=== PATIENT | female | born 1955 | race Hispanic/Latino ===

== ENCOUNTER → 2018-06-12 | Outpatient (CLI) | payer MEDICARE ==
--- NOTE | 2018-06-12 16:25 | Diagnostic Imaging Report ---
Left knee MRI without contrast. History: Knee pain. Decreased range of motion. Pain not responding to conservative management Comparison: None. Technique: Multiplanar multi-sequence MRI of the knee without contrast. Findings: Medial compartment: There is a complex medial meniscus tear involving the posterior horn and body segments. There is reactive bone marrow edema at the periphery of the medial femoral condyle. The medial compartmental articular cartilage surfaces are thinned with regions of fraying and fissuring. There is underlying bone marrow edema. The medial collateral ligament complex is intact. Lateral compartment: No meniscal tear or cartilage abnormality. The LCL complex is normal. Intercondylar notch: The ACL and PCL are intact. Patellofemoral compartment: There is articular cartilage fraying and deep fissuring in the patellofemoral compartment with mild underlying bone marrow edema. Extensor mechanism: The quadriceps and patellar tendons are normal. Other findings: There is a joint effusion and synovitis. There is no acute fracture, subluxation or avascular necrosis. 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 Articular cartilage fraying and deep fissuring in the patellofemoral compartment with underlying bone marrow edema. Signed by: Dr. Omar Mg M.D. on 06/12/2018 4:22 PM
== END ==
LOC: MRI 14:55
PROVIDERS: ATTEND Family Medicine
DX: M25.562 Pain in left knee (principal); M25.662 Stiffness of left knee, not elsewhere classified

== ENCOUNTER 2018-07-14 16:31 | Inpatient (IN) | payer MEDICARE ==
[~2018-07-14] VITALS: Ht 160 cm; Wt 88.9 kg
[2018-07-14] VITALS (14 sets, daily range): BP systolic 42–105; BP diastolic 33–84
--- OUTSIDE RECORDS SUMMARY | 2018-07-14 16:34 | XMS REPORT ---
Author Author [facility] Address Unknown Phone Unavailable Care Team Providers Care Automobile Service Writer Name Role Phone KRISHNA HOUSTON Unavailable Unavailable Problems This patient has no known problems. Allergies, Adverse Reactions, Alerts This patient has no known allergies or adverse reactions. Medications This patient has no known medications. Results Test Description Test Time Test Comments Text Results Atomic Results Result Comments MRI KNEE LEFT WO 2018-06-12 16:20:00 [facility] [address] [place], [place] [address] Patient Name: CHAR BARRIOS MR #: [id number] : 1955 Age/Sex: 63/F Req #: [id number] Adm Physician: Ordered by: HOUSTON ANDREW DO Report #: [id number] Location: MRI Room/Bed: Procedure: [id number] MRI/MRI KNEE LEFT WO Exam Date: Exam Time: REPORT STATUS: Signed Left knee MRI without contrast. History: Knee pain. Decreased r jamey of motion. Pain not responding to conservative management Comparison: None. Technique: Multiplanar multi-sequence MRI of the knee without contrast. Findings: Medial compartment: There is a complex medial meniscus tear involving the posterior horn and body segments. There is reactive bone marrow edema at the periphery of the medial femoral condyle. The medial compartmental articular cartilage surfaces are thinned with regions of fraying and fissuring. There is underlying bone marrow edema. The medial collateral ligament complex is intact. Lateral compartment: No meniscal tear or cartilage abnormality. The LCL complex is normal. Intercondylar notch: The ACL and PCL are intact. Patellofemoral compartment: There is articular cartilage fraying and deep fissuring in the patellofemoral compartment with mild underlying bone marrow edema. Extensor mechanism: The quadriceps and patellar tendons are normal. Other findings: There is a joint effusion and synovitis. There is no acute fracture, subluxation or avascular necrosis. 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 Articular cartilage fraying and deep fissuring in the patellofemoral compartment with underlying bone marrow edema. Signed by: Dr. Omar Mg M.D. on 06/12/2018 4:22 PM Dictated By: OMAR MG MD, MD 21 Transcribed By: LEXI on 06/12/181621 COPY TO: KRISHNA HOUSTON DO
--- NOTE | 2018-07-14 16:53 | NUR ---
PATIEN TO ROOM 4
--- NOTE | 2018-07-14 17:16 | Diagnostic Imaging Report ---
EXAM: XR CHEST 1 VIEW DATE: 07/14/2018 4:51 PM INDICATION: Fever COMPARISON: None FINDINGS: Lines and Tubes: None Heart and Mediastinum: Mildly enlarged. Lungs and Pleura: Underpenetration and body habitus limit. Patchy opacities lung bases. Bones and Soft Tissues: No acute findings. IMPRESSION: 1. Exam limited for technical reasons as above. 2. Basilar opacities could represent atelectasis, edema, and/or pneumonia. Signed by: Dr. Cassius Camara MD on 07/14/2018 5:13 PM
[2018-07-14 17:28] LABS: BASOPHILS # (AUTO) 0.1 (0.0-0.1); BASOPHILS % 0.4 % (0.0-1.0); EOSINOPHILS % 0.2 % (0.0-6.0); HEMATOCRIT 41.1 % (34.2-44.1); HEMOGLOBIN 14.2 g/dL (12.0-16.0); LYMPHOCYTES # (AUTO) 4.4 (1.0-3.2); LYMPHOCYTES % 22.9 % (18.0-39.1); MEAN CORPUSCULAR HEMOGLOBIN 31.4 pg (28-32); MEAN CORPUSCULAR HGB CONC 34.5 g/dL (31-35); MEAN CORPUSCULAR VOLUME 90.9 fL (81-99); MONOCYTES # (AUTO) 1.1 (0.2-0.8); MONOCYTES % 5.8 % (4.4-11.3); NEUTROPHILS # (AUTO) 13.3 (2.1-6.9); NEUTROPHILS % 69.6 % (38.7-80.0); PLATELET COUNT 281 x10e3/uL (140-360); RED BLOOD COUNT 4.52 x10e6/uL (3.6-5.1); RED CELL DISTRIBUTION WIDTH 11.9 % (11.7-14.4)
[2018-07-14 17:36] LABS: BILIRUBIN,URINE 1+ (NEGATIVE); CLARITY,URINE CLEAR (CLEAR); COLOR,URINE YELLOW (YELLOW); KETONES,URINE NEGATIVE (NEGATIVE); LEUKOCYTE ESTERASE ,URINE TRACE (NEGATIVE); NITRITE,URINE NEGATIVE (NEGATIVE); PROTEIN,URINE DIPSTICK 1+ (NEGATIVE); URINE UROBILINOGEN 4 mg/dL (0.2 - 1)
[2018-07-14 17:36] LABS: INR 1.15; PROTHROMBIN TIME 15.7 seconds (11.9-14.5)
--- NOTE | 2018-07-14 17:39 | NUR ---
AOS NOTIFIED OF CODE STEMI AT THIS TIME.
[2018-07-14] MEDS ORDERED: ASPIRIN 81 MG ENTERIC COATED PO ONE (17:41)
[2018-07-14] MEDS ORDERED: ASPIRIN 81 MG CHEW TAB PO ONE (17:45)
[2018-07-14] MEDS ORDERED: TICAGRELOR 90 MG TABLET PO ONE (17:45)
[2018-07-14] MEDS ORDERED: HEPARIN SOD (PORCINE) 5,000 UNIT/ML VIAL IV ONE (17:45)
[2018-07-14] MEDS ORDERED: VANCOMYCIN 1GM/NS 250 ML 250 ML IV ONE (17:45)
[2018-07-14] MEDS ORDERED: SODIUM CHLORIDE 0.9% 500ML 500 ML IV ONE (17:45)
[2018-07-14 17:46] LABS: BACTERIA,URINE FEW /HPF; EPITHELIAL CELLS,URINE FEW /LPF; MUCUS,URINE RARE (RARE)
[2018-07-14 17:46] LABS: ALBUMIN 3.3 g/dL (3.5-5.0); ALBUMIN/GLOBULIN RATIO 0.7 (0.8-2.0); ANION GAP 22.4 mmol/L (8-16); CALCIUM 9.3 mg/dL (8.4-10.2); CREATININE, SERUM 2.5 mg/dL (0.57-1.11); POTASSIUM 3.4 mmol/L (3.5-5.1)
[2018-07-14] MEDS ORDERED: SODIUM CHLORIDE 0.9% 1000ML 1,000 ML IV STA (17:49)
[2018-07-14 17:55] LABS: CREATINE KINASE MB 7.4 ng/mL (0-5.0)
[2018-07-14 17:58] LABS: B-TYPE NATRIURETIC PEPTIDE2 2200.1 pg/mL (0-100)
[2018-07-14] MEDS ORDERED: CEFEPIME HCL 2 GM VIAL IV NR (18:00)
[2018-07-14] MEDS ORDERED: HEPARIN SOD (PORCINE) 1000 UNIT/ML 30ML ONE (18:20)
[2018-07-14] MEDS ORDERED: VERAPAMIL HCL 2.5 MG/ML 2 ML VIAL ONE ×2 (18:20→18:34)
[2018-07-14] MEDS ORDERED: HEPARIN SOD/SOD CHLORIDE 2,000 ML ONE (18:21)
[2018-07-14] MEDS ORDERED: FENTANYL CITRATE/PF 100MCG/2 ML INJ ONE ×2 (18:21→19:28)
[2018-07-14] MEDS ORDERED: LIDOCAINE HCL 2% LOCAL 20 ML VIAL ONE (18:21)
[2018-07-14] MEDS ORDERED: MIDAZOLAM HCL 2 MG/2 ML VIAL ONE (18:21)
[2018-07-14] MEDS ORDERED: IOPAMIDOL 370 MG/ML 200 ML INFUS..BTL INJ ONE ×2 (18:21→19:19)
[2018-07-14] MEDS ORDERED: NITROGLYCERIN/D5W 200 MCG/ML 250 ML ONE (18:21)
[2018-07-14] MEDS ORDERED: FUROSEMIDE INJ 10 MG/ML 4 ML VIAL ONE (19:26)
[2018-07-14] MEDS ORDERED: ONDANSETRON HCL INJ 2 MG/ML VIAL IV PRN (23:45)
--- NOTE | 2018-07-14 23:45 | NUR ---
CALLED DR VILLAVICENCIO REGARDING PATIENT HAVING SEVERAL EPISODES OF NAUSEA WITH VOMITING BROWN IN COLOR AND HAD SMELL OF FECES ALONG WITH PATIENT HAVING SMELLS OF ANXIETY. NEW ORDER RECEIVED. AND PLACED
[2018-07-15] VITALS (46 sets, daily range): BP systolic 67–111; BP diastolic 46–93
--- NOTE | 2018-07-15 00:10 | Operative Report ---
DATE OF PROCEDURE: July 14, 2018 PROCEDURE: Cardiac catheterization report. INDICATIONS FOR PROCEDURE: STEMI. PRE-SEDATION ASSESSMENT: Patient's previous medical history, social history, previous experience with anesthesia was reviewed prior to the procedure. The risks, the benefits, alternatives of the procedure were explained to the patient and her and verbal consent was obtained. Written consent could not be obtained due to medical emergency. MEDICATIONS ADMINISTERED: Please see nursing notes for medications administered during the procedure. PROCEDURES PERFORMED 1. Coronary angiography through right radial approach. 2. Left heart catheterization. 3. Percutaneous coronary intervention to the right coronary artery with drug-eluting stent x2. PROCEDURE: Patient was brought to the cardiac catheterization laboratory in an emergent fashion. The right wrist was prepped and draped in a sterile fashion. Patient had very, very weak radial pulses that could not be palpated easily and a very small radial artery access was very difficult after getting accessed. Angiogram of the right radial artery system showed diffuse spasm as well as accessory radial artery, which made catheterization very difficult. We were able to pass 0.035-inch Glidewire and navigate through to the brachial artery and into the ascending aorta. Passing of a 6-Danish guide was very difficult and required significant sedation and localized verapamil. Angiography of the RCA was performed using a 6-Danish right guiding catheter. RCA was noted to have 80% lesion in the mid portion and the right posterior descending artery was noted to be 200% occluded. Given patient's ST elevation in the inferior leads, we decided to proceed with PCI of the RCA. We were able to wire the 100% occluded RPDA with some difficulty with the ChoICE PT floppy 0.014-inch coronary wire. Balloon angioplasty was performed using a 2.0- x 12-mm. Compliant balloon stenting was performed using 2.0- x 22-mm [place] drug-eluting stent for the RPDA and a 2.75- x 18-mm drug-eluting stent for the mid RCA. Pulse deployed at high pressures. This provided excellent angiographic results without any significant dissection thrombus or spasm. CAM-3 flow was restored in the RPDA. Distal PDA was diffusely diseased and was not amenable to PCI. We then changed to a 4-maori JL-3.5 diagnostic catheter given severe radial artery spasm to perform angiography of the left coronary system left coronary system. Left coronary system showed a 40% plaque in the ostial left main, as well as 80% lesion in OM-1 and just 80% lesion in the distal LAD as well as in a long, but small caliber diagonal. No further intervention was performed as these lesions were stable and patient's GFR was very low. All catheters were removed over a wire. Access site was closed using a TR band using patent hemostasis technique. IV boluses of heparin were administered to achieve ACT near 300. Ticagrelor 180 mg was loaded orally in the ER prior to the procedure. Patient tolerated the procedure well without any significant complications. LV end-diastolic pressure was measured using a right guide and was noted to be 38 mmHg. CONCLUSION: Inferior ST elevation ME, status post PCI x2 to the RCA with drug-eluting stent. RECOMMENDATIONS 1. Admitted to ICU for post STEMI care. 2. Continue aspirin 81 mg and Ticagrelor 90 mg twice a day for at least 1 year and aspirin 81 mg daily for life. 3. Follow up in clinic 2 weeks post discharge. 4. Staged PCI to the OM and distal LAD to be discussed once she recovers from acute illness, likely to be done as an outpatient after discharge. Job#: [id number] CQ
[2018-07-15] MEDS: ALPRAZOLAM 0.5 MG TAB PO PRN ×2 (00:40→21:16)
[2018-07-15] MEDS: FUROSEMIDE INJ 10 MG/ML 4 ML VIAL IV SCH ×4 (02:43→18:00)
--- NOTE | 2018-07-15 03:42 | NUR ---
CALLED DR VILLAVICENCIO REGARDING PATIENT COMPLAINING OF CHEST TIGHTNESS BUT MORE PRESSURE IN THE MID UPPER CHEST TO LEFT UPPER CHEST WALL. NON-TENDER UPON PALPATION. STILL COMPLAINS OF NAUSEA. NEW ORDER FOR MORPHINE 2MG X1 dose now and MORPHINE 2MG IV Q4HR PRN FOR CHEST PAIN. WILL CONTINUE TO MONITOR FOR FURTHER ISSUES. SEE VS FLOW SHEET FOR VS AND PAIN LEVEL ON q@H PAIN ASSESSMENT
[2018-07-15] MEDS ORDERED: MORPHINE SULFATE INJ 4 MG/ML INJ IV STA (03:46)
--- NOTE | 2018-07-15 04:50 | NUR ---
CALLED AND SPOKE TO DR Niharika DUNHAM REGARDING PATIENT HAVING URINARY RETENTION. BLADDER SCAN GREATER THAN 200CC. ORDER TO STRAIGHT CATH PATIENT AND IF GREATER THAN 400CC OF URINARY OUTPUT MAY INSERT INDWELLING TELLES CATH. ORDER PLACED AND CATH PERFORMED UNDER STERILE TECHNIQUE, PATIENT TOLERATED WELL AND HAD MUCH RELIEF WITH APPROXIMATED 350CC OF STRAW COLOR URINE WITH MILD PUNGENT SMELL.
[2018-07-15 04:51] LABS: BASOPHILS # (AUTO) 0.1 (0.0-0.1); BASOPHILS % 0.4 % (0.0-1.0); EOSINOPHILS % 0.1 % (0.0-6.0); HEMATOCRIT 36.6 % (34.2-44.1); HEMOGLOBIN 12.3 g/dL (12.0-16.0); LYMPHOCYTES # (AUTO) 3.5 (1.0-3.2); LYMPHOCYTES % 18.3 % (18.0-39.1); MEAN CORPUSCULAR HEMOGLOBIN 30.4 pg (28-32); MEAN CORPUSCULAR HGB CONC 33.6 g/dL (31-35); MEAN CORPUSCULAR VOLUME 90.6 fL (81-99); MONOCYTES # (AUTO) 1.2 (0.2-0.8); MONOCYTES % 6.3 % (4.4-11.3); NEUTROPHILS % 73.8 % (38.7-80.0); PLATELET COUNT 255 x10e3/uL (140-360); RED BLOOD COUNT 4.04 x10e6/uL (3.6-5.1); RED CELL DISTRIBUTION WIDTH 11.9 % (11.7-14.4)
[2018-07-15 05:29] LABS: CREATINE KINASE MB 5.4 ng/mL (0-5.0)
[2018-07-15 05:54] LABS: ALBUMIN 2.8 g/dL (3.5-5.0); ALBUMIN/GLOBULIN RATIO 0.7 (0.8-2.0); ANION GAP 20.5 mmol/L (8-16); CALCIUM 8.6 mg/dL (8.4-10.2); CHOL/HDL RATIO 13.5 (3.0-3.6); CREATININE, SERUM 2.23 mg/dL (0.57-1.11); POTASSIUM 3.5 mmol/L (3.5-5.1)
[2018-07-15] MEDS: ASPIRIN 81 MG CHEW TAB PO SCH (09:00)
[2018-07-15] MEDS: TICAGRELOR 90 MG TABLET PO SCH ×3 (09:00→20:54)
[2018-07-15] MEDS: PANTOPRAZOLE SOD 40 MG TABEC PO SCH (09:00)
[2018-07-15] MEDS: SODIUM CHLORIDE 0.9% 1000ML 1,000 ML IV SCH ×2 (11:00→23:00)
[2018-07-15 12:22] LABS: CREATINE KINASE MB 4.7 ng/mL (0-5.0)
--- NOTE | 2018-07-15 15:48 | NUR ---
Nutrition Intervention Note RD Recommendation(s) for Physician: -Rec adding ADA to cardiac diet as medically appropriate -Rec Glucerna BID to promote PO intake -Encourage PO and hydration Plan of Care: RD following, monitoring for tolerance and adequacy Nutrition reason for involvement: Nutrition Risk Trigger MST RD Assessment 07/15: Chart reviewed. 63yo F who is admitted for STEMI s/p stent on 07/14. During my assessment, pt reports poor appetite for 4-5days. Pt states I throw up whenever I eat. Pt denies any nausea or vomiting since admission. Pt reports having diarrhea for over 10days since started on Metformin a month ago; pt stopped taking the med. LBM 07/14 per chart. Pt has some missing bottom teeth but no complain of chewing or swallowing difficulty. Pt reports of UBW ~170lb; RD do not suspect of any acute weight loss at this time. Will continue to monitor and follow. Principal Problems/Diagnoses: STEMI s/p stent on 07/14, sepsis PMH: DM GI: LBM 07/14 per chart Skin: intact Labs: (07/15) Na 129 L, BUN 48 H, Creat 2.23 H, Glucose 215 H Meds: (07/15) Lasix, NaCl, Protonix, Zofran Ht: 63in Wt: 172lb BMI: 30.5kg/m2 IBW: 115lb Malnutrition Evaluation (07/15) The patient does not meet criteria for a specified degree of malnutrition at this time. Will re-evaluate at follow-up as appropriate. Energy intake: <50% of estimated energy requirements for >5 days Weight loss: None Fat loss: None Muscle loss: None Nutrition Prescription (Diet Order): cardiac diet Diet Adequacy: Not meeting calorie needs, Not meeting protein needs Diet Education Needs Assessment: Diet education indicated, but patient not appropriate for education at this time. Nutrition Care Level: moderate Nutrition Diagnosis: Inadequate oral intake related to current medical status as evidenced by pt reports of poor appetite and PO intake for 4-5 days. Goal: Patient will meet 75-100% of estimated needs by follow up Progress: Not Progressing Interventions: Mineral/carbohydrate modified diet, Commercial beverage, IVF, Prescription medications Monitoring/Evaluation: Total energy intake, Total protein intake, IVF, Prescription medication, Modified diet, Liquid supplement, Weight change Signed: Milka Gonsalez, MS, RD, LD
[2018-07-15] MEDS: MORPHINE SULFATE INJ 4 MG/ML INJ IV PRN (17:55)
--- NOTE | 2018-07-15 19:18 | Consultation ---
DATE OF CONSULTATION: July 15, 2018 CARDIOLOGY CONSULTATION REASON FOR CONSULTATION: ST elevation myocardial infarction. HISTORY OF PRESENT ILLNESS: This is a 63-year-old woman with a history of hypertension, diabetes mellitus who presented to the emergency department with chest discomfort, shortness of breath, cough, nausea and vomiting, and fatigue. The patient is slightly confused and cannot provide me with the exact details of her presenting symptoms or medical history. In the emergency department, she was found to have ST elevation myocardial infarction. She was taken to the cardiac catheterization laboratory and was found to have an occluded RCA which was successfully revascularized percutaneously by Dr. Rocha. She is currently feeling well and denies any chest pain or any other ongoing symptoms. REVIEW OF SYSTEMS: A 12-point review of systems was conducted, and is negative other than stated above in the HPI. PAST MEDICAL HISTORY: As stated above in the HPI. PAST SURGICAL HISTORY: Percutaneous coronary intervention. PAST FAMILY HISTORY: No premature coronary artery disease or sudden cardiac . ALLERGIES: NO KNOWN DRUG ALLERGIES. MEDICATIONS: See medication reconciliation form. PHYSICAL EXAMINATION VITAL SIGNS: Temperature 96.3, heart rate 90, saturation 98% on room air, blood pressure 109/82, respirations 18. GENERAL: She is a chronically ill-appearing elderly woman lying in bed. HEENT: Head is normocephalic, atraumatic. Eyes: Extraocular movements are intact. Conjunctivae clear. NECK: No jugular venous distention. CARDIOVASCULAR: Regular rate and rhythm. Normal S1 and S2. A systolic murmur heard best at the left upper sternal border. LUNGS: Clear to auscultation bilaterally. No wheezing and no rales. ABDOMEN: Soft, nontender, nondistended EXTREMITIES: No edema. VASCULAR; Severely diminished pulses. NEUROLOGIC: No focal deficits noted. All laboratory and imaging data were reviewed and notable for a creatinine of 2.23. Lactic acid is 27. AST 96, ALT 127. Troponin I is 20.6. LDL is 106. Chest x-ray shows bibasilar opacities. Telemetry monitoring revealed normal sinus rhythm. IMPRESSION AND RECOMMENDATIONS: 1. Inferior ST elevation myocardial infarction. The patient underwent successful revascularization percutaneously with Dr. Rocha. Continue dual-antiplatelet therapy. Statin has been given. May consider holding statin given elevated liver function test. Will check a 2D echocardiogram to assess left ventricular systolic function. The patient will need cardiac rehab. 2. Hypertension. The patient's blood pressure is running low. Beta rodrigo has not been started due to these issues. Will continue to monitor closely. 3. Chronic kidney disease, unclear baseline. Continue to follow urinary outputs and daily creatinine. 4. Abnormal liver function test. Defer treatment to primary team. Consider holding statin. Will continue to follow. Thank you for the consultation. Job#: [id number] WALT
[2018-07-15] MEDS ORDERED: ATORVASTATIN 20 MG TAB PO SCH (21:00)
--- NOTE | 2018-07-15 21:16 | NUR ---
Medicated for anxiety.
[2018-07-16] VITALS (16 sets, daily range): BP systolic 83–115; BP diastolic 60–92
[2018-07-16] MEDS: FUROSEMIDE INJ 10 MG/ML 4 ML VIAL IV SCH ×4 (00:11→17:38)
--- NOTE | 2018-07-16 04:30 | NUR ---
Complete bed bath given. Bed linens changed.
--- NOTE | 2018-07-16 05:25 | NUR ---
in to visit. Questions answered.
[2018-07-16] MEDS: SODIUM CHLORIDE 0.9% 1000ML 1,000 ML IV SCH (06:45)
[2018-07-16] MEDS: PANTOPRAZOLE SOD 40 MG TABEC PO SCH (07:28)
[2018-07-16 08:30] LABS: BASOPHILS # (AUTO) 0.1 (0.0-0.1); BASOPHILS % 0.4 % (0.0-1.0); EOSINOPHILS # (AUTO) 0.1 (0.0-0.4); EOSINOPHILS % 0.4 % (0.0-6.0); HEMATOCRIT 37.8 % (34.2-44.1); HEMOGLOBIN 12.7 g/dL (12.0-16.0); LYMPHOCYTES # (AUTO) 2.9 (1.0-3.2); MEAN CORPUSCULAR HEMOGLOBIN 31.4 pg (28-32); MEAN CORPUSCULAR HGB CONC 33.6 g/dL (31-35); MEAN CORPUSCULAR VOLUME 93.3 fL (81-99); MONOCYTES # (AUTO) 1.1 (0.2-0.8); MONOCYTES % 5.8 % (4.4-11.3); NEUTROPHILS # (AUTO) 14.5 (2.1-6.9); PLATELET COUNT 300 x10e3/uL (140-360); RED BLOOD COUNT 4.05 x10e6/uL (3.6-5.1); RED CELL DISTRIBUTION WIDTH 12.2 % (11.7-14.4)
[2018-07-16] MEDS: ASPIRIN 81 MG CHEW TAB PO SCH (08:46)
[2018-07-16] MEDS: TICAGRELOR 90 MG TABLET PO SCH ×3 (08:46→21:00)
[2018-07-16 09:22] LABS: ALBUMIN 2.7 g/dL (3.5-5.0); ALBUMIN/GLOBULIN RATIO 0.7 (0.8-2.0); ANION GAP 17.4 mmol/L (8-16); CALCIUM 8.5 mg/dL (8.4-10.2); CREATININE, SERUM 2.11 mg/dL (0.57-1.11); POTASSIUM 3.4 mmol/L (3.5-5.1)
--- NOTE | 2018-07-16 11:11 | Progress Note ---
DATE: July 16, 2018 CARDIOLOGY PROGRESS NOTE SUBJECTIVE: Patient feels well. Denies any chest pain, shortness of breath or palpitations. Again, she is in denial and states that she did not have a heart attack. OBJECTIVE VITAL SIGNS: Temperature is 97.2, heart rate is 84, respirations 16, blood pressure 94/74, oxygen saturation is 98% on room air. GENERAL: She is a chronically ill-appearing woman lying comfortably in bed. HEENT: Head is normocephalic and atraumatic. CARDIOVASCULAR: She is a regular rate and rhythm with a systolic murmur heard best at the left upper sternal border. LUNGS: Scattered crackles throughout both lower lung robles. ABDOMEN: Soft and nontender. EXTREMITIES: Trace edema. VASCULAR: Diminished pulses. NEUROLOGIC: No focal deficits noted. LABORATORY DATA: Reviewed. Shows a white blood cell count of 19.15. Creatinine of 2.11, sodium of 128, potassium of 3.4. Total bilirubin is 1.5, AST 74, ALT 115. Telemetry monitoring revealed normal sinus rhythm. IMPRESSION 1. Inferior ST-elevation myocardial infarction. 2. Hypertension. 3. Plxbo-hp-iooaoig kidney disease. 4. Abnormal liver function. 5. Leukocytosis. RECOMMENDATIONS: Patient is hemodynamically stable and feeling well from a cardiovascular standpoint. She has no continued chest pain. Continue dual antiplatelet regimen with aspirin and Brilinta. Statin on hold due to elevated liver function tests. Will start low-dose beta blockers. Check a 2-D echocardiogram and continue Lasix for diuresis. I will repeat a chest x-ray given crackles on exam today. Continue treatment for leukocytosis and hyponatremia per primary team. She may require antibiotics. In regards to her heart failure, will check a 2-D echocardiogram and continue Lasix intravenously, and monitor creatinine and urinary outputs. Job#: [id number] LAWRENCE
[2018-07-16] MEDS ORDERED: POTASSIUM CHLORIDE 20MEQ/100ML 100 ML IV ONE (12:15)
[2018-07-16] MEDS ORDERED: LACTULOSE SYRUP 20 GM/30 ML UDC PO PRN (12:15)
[2018-07-16] MEDS: CEFTRIAXONE SOD 1 GM VIAL IV SCH (12:49)
--- NOTE | 2018-07-16 14:38 | NUR ---
nursing report called to Emiliana LINARESneurosurgical nurse practitioner 2 for room 212. will transfer patient when echo completed and new p.iv placed.
[2018-07-16] MEDS ORDERED: SODIUM CHLORIDE 0.9% 250ML 250 ML ONE (14:49)
--- NOTE | 2018-07-16 15:31 | NUR ---
Received patient from ICU via bed.Accompanied by family member. AAOX3 to time, person, place. Respirations even and unlabored. Tele [id number] SR [id number]. Oriented patient to room. Alternating pressure pump placed. SCD placed as ordered. Instructed patient to use call light for assistance. Voiced understanding.
[2018-07-16] MEDS: METOPROLOL TARTRATE 25 MG TAB PO SCH (17:00)
[2018-07-16] MEDS: MORPHINE SULFATE INJ 4 MG/ML INJ IV PRN (17:38)
--- NOTE | 2018-07-16 18:00 | NUR ---
Paged to notify of BP and to receive clarification on parameters for lopressor. Awaiting for call back
--- NOTE | 2018-07-16 18:50 | NUR ---
alesha Momin information security analyst for . Parameters for lopressor received.
--- NOTE | 2018-07-16 19:00 | NUR ---
Report given to oncoming nurse of patient's status. No s/s of acute distress noted.
[2018-07-17] VITALS (8 sets, daily range): BP systolic 80–97; BP diastolic 54–70
[2018-07-17] MEDS: FUROSEMIDE INJ 10 MG/ML 4 ML VIAL IV SCH ×4 (05:33→17:12)
--- NOTE | 2018-07-17 07:00 | NUR ---
RCD PT AT BED PT IS ALERT AND ORIENTED ASSESSMENT DONE PT RESTING ON BED NO SIGNS OF ANY DISTRESS NOTED IV PATENT FAMILY AT BED SIDE TELLES DRAINING BY GRAVITY BED LOW AND LOCKED CALL LIGHT IN REACH
[2018-07-17] MEDS: PANTOPRAZOLE SOD 40 MG TABEC PO SCH (07:30)
[2018-07-17] MEDS: TICAGRELOR 90 MG TABLET PO SCH ×3 (09:00→22:40)
[2018-07-17] MEDS: METOPROLOL TARTRATE 25 MG TAB PO SCH ×2 (09:00→17:00)
[2018-07-17] MEDS: ASPIRIN 81 MG CHEW TAB PO SCH (09:00)
[2018-07-17 11:31] LABS: BASOPHILS # (AUTO) 0.1 (0.0-0.1); BASOPHILS % 0.4 % (0.0-1.0); EOSINOPHILS # (AUTO) 0.1 (0.0-0.4); EOSINOPHILS % 0.3 % (0.0-6.0); HEMATOCRIT 39.3 % (34.2-44.1); LYMPHOCYTES % 15.3 % (18.0-39.1); MEAN CORPUSCULAR HEMOGLOBIN 31.4 pg (28-32); MEAN CORPUSCULAR HGB CONC 33.1 g/dL (31-35); MEAN CORPUSCULAR VOLUME 94.9 fL (81-99); MONOCYTES # (AUTO) 1.1 (0.2-0.8); MONOCYTES % 5.4 % (4.4-11.3); NEUTROPHILS # (AUTO) 14.8 (2.1-6.9); NEUTROPHILS % 76.5 % (38.7-80.0); PLATELET COUNT 357 x10e3/uL (140-360); RED BLOOD COUNT 4.14 x10e6/uL (3.6-5.1); RED CELL DISTRIBUTION WIDTH 12.5 % (11.7-14.4)
[2018-07-17 11:52] LABS: ANION GAP 20.3 mmol/L (8-16); CALCIUM 8.7 mg/dL (8.4-10.2); CREATININE, SERUM 2.49 mg/dL (0.57-1.11); POTASSIUM 4.3 mmol/L (3.5-5.1)
--- NOTE | 2018-07-17 12:00 | NUR ---
DC TELLES BY ORDER 150 ML URINE IN THE BAG
[2018-07-17] MEDS: CEFTRIAXONE SOD 1 GM VIAL IV SCH (12:15)
--- NOTE | 2018-07-17 12:32 | Diagnostic Imaging Report ---
EXAMINATION: PA and lateral views of the chest. COMPARISON: Portable chest 07/14/2018 CLINICAL HISTORY: Sepsis, ST elevation, shortness of breath DISCUSSION: Lines/tubes: None. Lungs: Lungs are well-inflated. Worsening opacity in the right lower lung. Improved left atelectasis. Pleura: Blunting of the right lateral and posterior costophrenic sulci, consistent with small pleural effusion. Heart and mediastinum: Enlarged cardiac silhouette. Central pulmonary venous congestion and mild perihilar interstitial edema Bones and soft tissues: No acute bony abnormalities. Degenerative changes in the thoracic spine IMPRESSION: 1. Worsening opacity in the right lower lung, which may reflect worsening atelectasis, particularly in the setting of a right pleural effusion. Worsening pneumonia could be considered, in the appropriate clinical setting. 2. Enlarged cardiac silhouette with central pulmonary venous congestion and mild perihilar interstitial edema. Findings may reflect decompensated CHF. Signed by: Dr. Yovani Arthur M.D. on 07/17/2018 12:29 PM
[2018-07-17 12:45] LABS: LYMPHOCYTES % (MANUAL) 14 % (19-48); MONOCYTES % (MANUAL) 2 % (3.4-9.0); NEUTROPHILS % (MANUAL) 83 % (40-74)
[2018-07-17 12:46] LABS: BAND NEUTROPHILS % (MANUAL) 1 %; NUCLEATED RED BLOOD CELLS 1; PLATELET ESTIMATE ADEQUATE; PLATELET MORPHOLOGY COMMENT NORMAL; RBC MORPHOLOGY COMMENT NORMAL
--- NOTE | 2018-07-17 17:00 | NUR ---
PT VOIDED AFTER TELLES
--- NOTE | 2018-07-17 18:20 | NUR ---
PT IS NOT STABLE TO WALK OUT SIDE PT NEED NEED ASSISTANCE FROM PT
--- NOTE | 2018-07-17 18:42 | NUR ---
PT RESTING ON BED BED SIDE REPORT GIVEN TO ONCOMING NURSE
--- NOTE | 2018-07-17 18:47 | Progress Note ---
DATE: July 17, 2018 CARDIOLOGY PROGRESS NOTE SUBJECTIVE: No major events overnight. Patient complains about just feeling weak and not having any appetite. She has not eaten anything in 3 or 4 days at this point. Also complaining about nausea. OBJECTIVE VITAL SIGNS: Temperature 96.9, pulse 72, respiratory rate 20, blood pressure 93/54, satting 98% on nasal cannula. GENERAL: Obese white female, no acute distress. CARDIOVASCULAR: Regular rate and rhythm. No murmurs, rubs or gallops. Palpable carotid pulses. Palpable radial pulses. LUNGS: Coarse bilaterally. No respiratory distress. ABDOMEN: Obese, soft, nontender. No masses. NEURO AND PSYCH: Alert and oriented to person, place, and time. Normal affect. LABORATORY DATA: Reviewed. CARDIOVASCULAR MEDICATIONS: Reviewed. TELEMETRY DATA: Reviewed. Shows normal sinus rhythm. ASSESSMENT 1. Inferior ST elevation myocardial infarction. 2. Acute systolic heart failure. 3. Hypotension. 4. Ffrho-sl-mabriaq kidney disease. 5. Pneumonia. 6. Abnormal liver function test. 7. Leukocytosis. PLAN: Blood pressure remains borderline low; however, hemodynamically stable. Continue to diurese as much as tolerated as her left ventricular end-diastolic pressure was very high during catheterization and her ejection fractions are normal. Continue dual-antiplatelet therapy with aspirin and ticagrelor given recent stents and ST elevation [place]. No statin given abnormal LFTs. Management of pneumonia per primary team and infectious disease. Thank you for this consult. Will continue to follow. Job#: [id number] RTHenrik
--- NOTE | 2018-07-17 19:14 | NUR ---
Report received and walking rounds complete. Pt sleeping and in no apparent distress. All safety measures ensured, bed alarm on, and pt call light near.
[2018-07-17] MEDS: ALPRAZOLAM 0.5 MG TAB PO PRN (22:40)
[2018-07-18] VITALS (7 sets, daily range): BP systolic 86–126; BP diastolic 52–68
[2018-07-18] MEDS: FUROSEMIDE INJ 10 MG/ML 4 ML VIAL IV SCH ×4 (06:31→17:01)
--- NOTE | 2018-07-18 07:02 | NUR ---
Received patient mid fowlers position, side rails upx2, call light within reach, family member at bedside, bed alarm on. Resting in bed with eyes closed. Arousable to verbal stimuli. Respirations even and unlabored. Will continue to monitor.
--- NOTE | 2018-07-18 08:40 | NUR ---
BP 86/52 manually. Paged
[2018-07-18] MEDS: PANTOPRAZOLE SOD 40 MG TABEC PO SCH (08:51)
[2018-07-18] MEDS: TICAGRELOR 90 MG TABLET PO SCH ×2 (08:51→17:01)
[2018-07-18] MEDS: METOPROLOL TARTRATE 25 MG TAB PO SCH ×2 (08:51→16:54)
[2018-07-18] MEDS: ASPIRIN 81 MG CHEW TAB PO SCH (08:51)
--- NOTE | 2018-07-18 09:50 | NUR ---
Dr.Patel Benitez aware of patient's BP. See orders
[2018-07-18] MEDS ORDERED: ALPRAZOLAM 0.5 MG TAB PO PRN (11:15)
--- NOTE | 2018-07-18 11:52 | NUR ---
Educated patient on fluid restriction. Patient voiced understanding.
[2018-07-18] MEDS ORDERED: TICAGRELOR 90 MG TABLET PO SCH (12:15)
--- NOTE | 2018-07-18 12:37 | Progress Note ---
DATE: July 18, 2018 CARDIOLOGY PROGRESS NOTE OBJECTIVE VITAL SIGNS: Temperature 96.8, pulse 71, respiratory rate 22, blood pressure 90/62, satting 96% on room air. GENERAL: Elderly female, no acute distress. CARDIOVASCULAR: Regular rate and rhythm. A 3/6 holosystolic murmur best heard at the base. Palpable carotid pulses. Palpable radial pulses. Lower extremity pulses are not palpable. EXTREMITIES: No edema or ulcerations. LUNGS: Clear to auscultation bilaterally. No respiratory distress. ABDOMEN: Obese, soft, nontender. NEUROLOGIC: Alert and oriented to person, place and time. Depressed and anxious affect. LABORATORY DATA: Reviewed. INPATIENT MEDICATIONS: Reviewed. TELEMETRY DATA: Reviewed. Shows normal sinus rhythm. ASSESSMENT 1. Inferior ST elevation myocardial infarction. 2. Acute systolic heart failure. 3. Ventricular septal defect post myocardial infarction. 4. Hypotension. 5. Niggk-ht-hhtvnqb kidney disease. 6. Pneumonia. 7. Abnormal liver function tests. 8. Leukocytosis. PLAN: Continue dual antiplatelet therapy with aspirin and ticagrelor. Has a VSD in the inferoseptal wall per the echocardiogram; however, currently hemodynamically stable. Once she recovers from her acute SD, will plan for sending her for a VSD closure. Thank you for this consult. Will continue to follow. Job#: [id number] ROMERO
--- NOTE | 2018-07-18 12:49 | NUR ---
von held per doctor's orders. BP 88/64
[2018-07-18] MEDS: CEFTRIAXONE SOD 1 GM VIAL IV SCH (13:00)
--- NOTE | 2018-07-18 18:30 | NUR ---
Resting in bed. No s/s of acute distress noted. Call light within reach. Report to be given to oncoming nurse.
[2018-07-19] MEDS: FUROSEMIDE INJ 10 MG/ML 4 ML VIAL IV SCH ×3 (00:32→16:57)
[2018-07-19 00:37] VITALS: BP 92/51
[2018-07-19 06:41] VITALS: BP 100/82
[2018-07-19 08:00] VITALS: BP_SYST 97; BP_SYST 98; BP_DIAS 72
[2018-07-19] MEDS: MORPHINE SULFATE INJ 4 MG/ML INJ IV PRN ×2 (08:26→19:34)
[2018-07-19] MEDS: ASPIRIN 81 MG CHEW TAB PO SCH (08:26)
[2018-07-19] MEDS: PANTOPRAZOLE SOD 40 MG TABEC PO SCH (08:26)
[2018-07-19] MEDS: TICAGRELOR 90 MG TABLET PO SCH ×2 (08:26→16:57)
[2018-07-19] MEDS: METOPROLOL TARTRATE 25 MG TAB PO SCH ×2 (09:00→16:47)
[2018-07-19] MEDS: MEGACE 400MG/ 10ML CUP PO SCH (09:00)
--- NOTE | 2018-07-19 10:00 | NUR ---
Pt reported having chest pain this morning around 0745. EKG was done and results called into to Dr. Cassius Rocha. Received no new orders at this time. Pt denies any cheat pain at this time.
[2018-07-19 12:00] VITALS: BP 100/64
[2018-07-19] MEDS: CEFTRIAXONE SOD 1 GM VIAL IV SCH (13:30)
--- NOTE | 2018-07-19 14:28 | Progress Note ---
DATE: July 19, 2018 CARDIOLOGY PROGRESS NOTE SUBJECTIVE: No major events overnight. Patient got up and ambulated to the bathroom with assistance this morning, reported some shortness of breath. EKG was done, which showed persistent ST elevations in the inferior leads. Patient was asymptomatic at rest and has been on her dual-antiplatelet therapy throughout her hospitalization. OBJECTIVE VITAL SIGNS: Temperature 96.9, pulse 79, respiratory rate 22, blood pressure 100/82, satting 97% on 2 liters nasal cannula. GENERAL: Ill-appearing female, no acute distress. CARDIOVASCULAR: Regular rate and rhythm, 3/6 holosystolic murmur best heard at the base. LUNGS: Clear to auscultation bilaterally. Diminished breath sounds at the bases. No respiratory distress. ABDOMEN: Obese, soft, nontender. NEURO AND PSYCH: Alert and oriented to person, place, and time. Depressed affect. LABORATORY DATA: Reviewed. Creatinine has increased slightly to 2.5. White count continues to remain elevated at 19. INPATIENT MEDICATIONS: Reviewed. TELEMETRY DATA: Reviewed, shows normal sinus rhythm. ASSESSMENT 1. Inferior ST elevation myocardial infarction. 2. Acute systolic heart failure. 3. Ventricular septal defect post myocardial infarction. 4. Hypotension. 5. Acute kidney injury on chronic kidney disease. 6. Right lower lobe pneumonia. 7. Abnormal liver function tests. 8. Leukocytosis. PLAN: Continue dual-antiplatelet therapy with aspirin and ticagrelor. Has a VSD in the inferoseptal wall; however, currently hemodynamically stable. Given her recent AL, would like her to heal and the VSD to scar before any intervention can be considered. We will get more labs and repeat a chest x-ray tomorrow to follow progress. Thank you for this consult. We will continue to follow. Job#: [id number] YVETTE
[2018-07-19 16:00] VITALS: BP 92/51
--- NOTE | 2018-07-19 19:12 | NUR ---
per JESSENIA Marques, patient refused bath, will continue to monitor.
--- NOTE | 2018-07-19 19:57 | NUR ---
during routine rounding, patient complained of left knee pain, score 7. BP checked, and PRN pain med given IV, will continue to monitor.
[2018-07-19 20:00] VITALS: BP 99/68
[2018-07-19 20:36] LABS: BASOPHILS # (AUTO) 0.1 (0.0-0.1); BASOPHILS % 0.3 % (0.0-1.0); EOSINOPHILS # (AUTO) 0.1 (0.0-0.4); EOSINOPHILS % 0.5 % (0.0-6.0); HEMATOCRIT 38.6 % (34.2-44.1); LYMPHOCYTES # (AUTO) 2.3 (1.0-3.2); LYMPHOCYTES % 12.4 % (18.0-39.1); MEAN CORPUSCULAR HEMOGLOBIN 31.8 pg (28-32); MEAN CORPUSCULAR HGB CONC 33.7 g/dL (31-35); MEAN CORPUSCULAR VOLUME 94.4 fL (81-99); MONOCYTES # (AUTO) 1.6 (0.2-0.8); MONOCYTES % 8.8 % (4.4-11.3); NEUTROPHILS # (AUTO) 13.9 (2.1-6.9); NEUTROPHILS % 76.2 % (38.7-80.0); PLATELET COUNT 315 x10e3/uL (140-360); RED BLOOD COUNT 4.09 x10e6/uL (3.6-5.1); RED CELL DISTRIBUTION WIDTH 14.6 % (11.7-14.4)
[2018-07-19 20:59] LABS: ANION GAP 23.3 mmol/L (8-16); CALCIUM 8.7 mg/dL (8.4-10.2); CREATININE, SERUM 4.07 mg/dL (0.57-1.11); POTASSIUM 4.3 mmol/L (3.5-5.1)
[2018-07-20] VITALS (8 sets, daily range): BP systolic 98–120; BP diastolic 52–76
[2018-07-20] MEDS: MORPHINE SULFATE INJ 4 MG/ML INJ IV PRN ×2 (02:33→06:35)
[2018-07-20 05:12] LABS: BASOPHILS # (AUTO) 0.1 (0.0-0.1); BASOPHILS % 0.5 % (0.0-1.0); EOSINOPHILS # (AUTO) 0.1 (0.0-0.4); EOSINOPHILS % 0.5 % (0.0-6.0); HEMATOCRIT 41.8 % (34.2-44.1); HEMOGLOBIN 13.6 g/dL (12.0-16.0); LYMPHOCYTES # (AUTO) 2.4 (1.0-3.2); LYMPHOCYTES % 11.9 % (18.0-39.1); MEAN CORPUSCULAR HEMOGLOBIN 31.4 pg (28-32); MEAN CORPUSCULAR HGB CONC 32.5 g/dL (31-35); MEAN CORPUSCULAR VOLUME 96.5 fL (81-99); MONOCYTES # (AUTO) 2.1 (0.2-0.8); MONOCYTES % 10.4 % (4.4-11.3); NEUTROPHILS # (AUTO) 15.1 (2.1-6.9); NEUTROPHILS % 74.6 % (38.7-80.0); PLATELET COUNT 329 x10e3/uL (140-360); RED BLOOD COUNT 4.33 x10e6/uL (3.6-5.1); RED CELL DISTRIBUTION WIDTH 15.1 % (11.7-14.4)
[2018-07-20 05:27] LABS: ANION GAP 25.4 mmol/L (8-16); CALCIUM 9.1 mg/dL (8.4-10.2); CREATININE, SERUM 4.06 mg/dL (0.57-1.11); POTASSIUM 4.4 mmol/L (3.5-5.1)
[2018-07-20] MEDS: TICAGRELOR 90 MG TABLET PO SCH ×2 (09:40→18:41)
[2018-07-20] MEDS: PANTOPRAZOLE SOD 40 MG TABEC PO SCH (09:40)
[2018-07-20] MEDS: FUROSEMIDE INJ 10 MG/ML 4 ML VIAL IV SCH (09:40)
[2018-07-20] MEDS: ASPIRIN 81 MG CHEW TAB PO SCH (09:40)
[2018-07-20] MEDS: METOPROLOL TARTRATE 25 MG TAB PO SCH ×2 (09:41→19:24)
[2018-07-20] MEDS: MEGACE 400MG/ 10ML CUP PO SCH (09:41)
[2018-07-20 10:42] LABS: LYMPHOCYTES % (MANUAL) 10 % (19-48); MONOCYTES % (MANUAL) 8 % (3.4-9.0); NEUTROPHILS % (MANUAL) 81 % (40-74)
[2018-07-20 10:43] LABS: PLATELET ESTIMATE ADEQUATE; PLATELET MORPHOLOGY COMMENT NORMAL; RBC MORPHOLOGY COMMENT NORMAL
[2018-07-20] MEDS ORDERED: SODIUM CHLORIDE 0.9% 1000ML 1,000 ML IV SCH (10:45)
--- NOTE | 2018-07-20 11:00 | NUR ---
Pt was complaining of extreme pain to left leg. Pt is afebrile. She is lethargic. Spoke with Dr. Morales to report abnormal labs. Received orders to consult Dr. Espinal for leukocytosis. Consult Dr. Bolton for acute kidney injury and hyponatremia. Stat CXR and venous doppler to left lower leg. Received orders to start NS@100ml/hr. Received orders for STAT labs. Dr. Morales here to see pt 30 minutes after spoke to him on the phone.
[2018-07-20] MEDS: TRAMADOL HCL 50 MG TAB PO PRN (11:29)
--- NOTE | 2018-07-20 11:37 | Diagnostic Imaging Report ---
Examination: Single AP view of the chest. COMPARISON: Chest 2 views 07/17/2018 INDICATION: Leukocytosis, sepsis IMPRESSION: Exam limited by soft tissue attenuation. 1. Lines and Tubes: None 2. Lungs are mildly hypoinflated. Bilateral interstitial opacities extending from the constanza consistent with interstitial pulmonary edema.. No consolidation or effusion 3. Enlarged cardiac silhouette. Central pulmonary venous congestion. 4. No acute bony abnormalities. Signed by: Dr. Yovani Arthur M.D. on 07/20/2018 11:33 AM
[2018-07-20] MEDS: CEFTRIAXONE SOD 1 GM VIAL IV SCH (12:26)
[2018-07-20 12:50] LABS: BILIRUBIN,URINE 1+ (NEGATIVE); CLARITY,URINE HAZY (CLEAR); COLOR,URINE AMBER (YELLOW); KETONES,URINE NEGATIVE (NEGATIVE); LEUKOCYTE ESTERASE ,URINE NEGATIVE (NEGATIVE); NITRITE,URINE NEGATIVE (NEGATIVE); PROTEIN,URINE DIPSTICK NEGATIVE (NEGATIVE); URINE UROBILINOGEN 1 mg/dL (0.2 - 1)
[2018-07-20 12:51] LABS: EPITHELIAL CELLS,URINE RARE /LPF; WBC,URINE (MAN) 0-5 /HPF (0-5)
--- NOTE | 2018-07-20 14:00 | NUR ---
STAT lab results called into Dr. Morales and received new orders to to start pt on uloric 40mg PO daily and colchicine 0.6mg Q12h x3 days if ok with renal. Spoke with Dr. Cox and received orders to change colchicine 0.6 po daily x3 days.
[2018-07-20] MEDS: COLCHICINE 0.6 MG TAB PO SCH (14:22)
[2018-07-20] MEDS: FEBUXOSTAT 80 MG TAB PO SCH (14:22)
[2018-07-20 16:06] LABS: AMYLASE 50 U/L (25-125); LIPASE 161 U/L (8-78)
--- NOTE | 2018-07-20 16:30 | NUR ---
Dr. Rocha cardiology was here to see pt and updated on pt condition. received orders to stop IV fluids at this time and insert Graham catheter. Graham catheter 16FR was placed under sterile technique. Renal was notified of changes made by cardiology and doctor states she will be here to see patient later tonight. Pt is in bed with eyes closed easily arouses with verbal stimuli. Bed alarm in place
[2018-07-20] MEDS ORDERED: INSULIN LISPRO 100 UNIT/1 ML 3ML VIAL SQ SCH (18:00)
--- NOTE | 2018-07-20 18:11 | Progress Note ---
DATE: July 20, 2018 CARDIOLOGY PROGRESS NOTE SUBJECTIVE: Patient does not feel well, has significant malaise, and complained about left ankle pain. OBJECTIVE VITAL SIGNS: Temperature 98.9, pulse 88, respiratory rate 18, blood pressure 111/69, satting 99% on nasal cannula. GENERAL: Ill-appearing female, no acute distress. CARDIOVASCULAR: Regular rate and rhythm. A 2/6 systolic murmur best heard at the base. LUNGS: With bilateral rales, decreased breath sounds at the bases. Poor air movement. No respiratory distress. ABDOMEN: Soft, obese, nontender. NEURO AND PSYCH: Alert and oriented to person, place, and time. Depressed affect. INPATIENT MEDICATIONS: Reviewed. LABORATORY DATA: Reviewed, notable for elevated white count of 19, creatinine of 4, BUN is 107, sodium is 126. IMAGING DATA: Reviewed. Lower extremity venous Doppler without any evidence of acute DVT. Chest x-ray shows bilateral pulmonary edema. TELEMETRY DATA: Reviewed, shows sinus rhythm with occasional sinus tachycardia. ASSESSMENT 1. Inferior ST-elevation myocardial infarction, late presentation. 2. Acute systolic heart failure. 3. Ventricular septal defect, post myocardial infarction. 4. Hypotension. 5. Acute kidney injury on chronic kidney disease. 6. Possible pneumonia. 7. Abnormal liver function tests. 8. Leukocytosis. PLAN: Continue dual-antiplatelet therapy with aspirin and ticagrelor. Has a VSD in the inferoseptal wall, borderline hemodynamics currently. SKYLAR and volume overload, please discontinue fluids given pulmonary edema, may need dialysis, will defer to nephrology. Patient is critically ill with multiple organ dysfunction. Prognosis is guarded. Discussed this with the family. Thank you for this consult. We will continue to follow. Job#: [id number] LPA
[2018-07-20] MEDS ORDERED: DIATRIZOATE MEGL/DIATRIZOA SOD 30 ML BTL PO ONE (20:01)
[2018-07-20] MEDS ORDERED: DEXTROSE 50% SYRINGE 50 ML IV PRN (21:30)
--- NOTE | 2018-07-20 22:45 | Diagnostic Imaging Report ---
EXAM: CT Abdomen and Pelvis WITHOUT contrast INDICATION: Sepsis. Rule out infection. ^r/o infection ^[id number] ^[id number] COMPARISON: None. TECHNIQUE: Abdomen and pelvis were scanned utilizing a multidetector helical scanner from the lung base to the pubic symphysis without administration of IV contrast. Coronal and sagittal reformations were obtained. Routine protocol was performed. IV CONTRAST: None ORAL CONTRAST: Water COMPLICATIONS: None RADIATION DOSE: Total DLP: 756.1 mGy*cm Estimated effective dose: (DLP x 0.015 x size factor) mSv CTDIvol has been reviewed. It is below the limits set by the Radiation Protocol Committee (RPC). Dose modulation, iterative reconstruction, and/or weight based adjustment of the mA/kV was utilized to reduce the radiation dose to as low as reasonably achievable. FINDINGS: Absence of intravenous contrast decreases sensitivity for detection of focal lesions and vascular pathology. LINES and TUBES: Graham catheter. LOWER THORAX: Small bilateral pleural effusions, right greater than left, with adjacent atelectasis. Right coronary artery calcifications. HEPATOBILIARY: No focal hepatic lesions. No biliary ductal dilation. GALLBLADDER: Cholelithiasis. No wall thickening. SPLEEN: No splenomegaly. PANCREAS: No focal masses or ductal dilatation. ADRENALS: No adrenal nodules KIDNEYS/URETERS: Kidneys appear hyperattenuating on this noncontrast CT, possibly related to SKYLAR with retention of previous contrast. No hydronephrosis. No cystic or solid mass lesions. No stones. GI TRACT: No abnormal distention, wall thickening, or evidence of bowel obstruction. Appendix is normal. PELVIC ORGANS/BLADDER: Unremarkable. LYMPH NODES: No lymphadenopathy. VESSELS: There is mild atherosclerotic disease in the aorta and major arterial branches. PERITONEUM / RETROPERITONEUM: No free air or fluid. BONES: Unremarkable. SOFT TISSUES: Unremarkable. IMPRESSION: No non-contrast CT evidence of abscess or apparent source of infection. Cholelithiasis. Hyperattenuating appearance of the kidneys on this noncontrast scan may suggest impaired renal function. Recommended correlation with GFR. Small bilateral pleural effusions. Signed by: DR. Ángel Anderson MD on 07/20/2018 10:42 PM
[2018-07-20] MEDS: INSULIN LISPRO 100 UNIT/1 ML 3ML VIAL SQ SCH (23:28)
--- NOTE | 2018-07-20 23:50 | Consultation ---
DATE OF CONSULTATION: July 20, 2018 REASON FOR CONSULTATION: Leukocytosis. HISTORY OF PRESENT ILLNESS: This patient who is a 63-year-old white female comes into the emergency room on July 04, 2018 with chest pain. The patient was seen by cardiology. She was diagnosed with CAM, underwent coronary angiogram through the right radial approach, left heart catheterizations, percutaneous coronary intervention to the right coronary artery with drug-eluting stent x 2. Patient was admitted. She has been in the hospital since then, but her white count has been persistently high, so I was asked to see her. The patient is currently lying in bed, just not feeling well. In general, there is no specific complaint. There is no pain. She states she is having pain in her knee but that is her gout. This patient who is a 63-year-old has history of hypertension, diabetes mellitus, smokes about 4 cigarettes a day, obesity comes into the emergency room with chest pain, shortness of breath, cough, nausea, and vomiting. She was diagnosed with ST-elevation myocardial infarction. She was taken to cardiac catheterization as mentioned above. She had a right CA occluded, was successfully revascularized by Dr. Rocha. Patient has been in hospital since then, but her white count has been getting progressively worse, elevated, so infectious disease was consulted. Her blood culture is negative. Urine culture is negative. She had a chest x-ray which was negative. LABORATORY DATA: Reviewed. Her white count when she came in was 18.9, today is 20.16, hemoglobin of 13, hematocrit of 41, her platelets are 329. She had neutrophils at 15.1, but her lymphocytes are 2.4%. her monocytes are elevated at 2.1, her basophils are 0.1, and her granulocytes are 43%. Sodium 126, potassium 4.4, creatinine of 4.06, [place] [address]. MEDICATIONS: Patient is on colchicine, ceftriaxone, Ultram, metoprolol, aspirin. REVIEW OF SYSTEMS GENERAL: She is not feeling well. HEENT: There is no headache, visual change, or hearing changes. GI: There is no nausea, vomiting, or diarrhea. JOINTS: She is having pain in the left knee. Otherwise unremarkable. PHYSICAL EXAMINATION GENERAL: She is currently alert. Does not seem to be in acute distress. VITALS: Stable. Afebrile. There is no fever since admission. HEENT: Normocephalic. NECK: Supple. No JVD. No lymphadenopathy. No thyromegaly. CHEST: Clear bilateral. HEART: S1, S2. No S3, S4 murmur. ABDOMEN: Soft. Diffuse discomfort. EXTREMITIES: No edema. SKIN: No rash. She has several bruising noted, ecchymosis subcutaneously in the upper extremities. IMPRESSION 1. Leukocytosis, reactive, etiology unclear, while this could be from her myocardial infarction and acute gout, I am concerned for infection. Agree with Kameron. We will check CT of abdomen and pelvis. Check amylase and lipase. 2. Chronic kidney disease with acute kidney injury. 3. Obesity. 4. Smoker. 5. Coronary artery disease, status post ST-elevation myocardial infarction. We will follow with you. Job#: [id number] LPA
[2018-07-21] VITALS (8 sets, daily range): BP systolic 88–115; BP diastolic 54–80
--- NOTE | 2018-07-21 00:11 | Consultation ---
DATE OF CONSULTATION: July 20, 2018 REFERRING PHYSICIAN: Dr. Edvin Morales. REASON FOR CONSULTATION: Acute kidney injury. HISTORY OF PRESENT ILLNESS: Patient is a 63-year-old female with past medical history for hypertension, diabetes, hyperlipidemia, who was admitted with history of nausea, vomiting, chest pain and shortness of breath. Patient was found to have STEMI and went to the dock or pier lab[facility], had an angiogram done and had a stent placed in posterior descending artery and right coronary artery. On admission, patient had a creatinine of 2.5. Patient's creatinine went up to 4.07 yesterday. Patient also started getting more and more short of breath and chest x-ray had evidence of volume overload. Patient was started on Lasix 20 mg IV twice a day. Her creatinine is stayed at 4.06 this morning. Lasix was stopped. Nephrology has been consulted. Patient denies having any kidney issues in the past. Patient also complaints of right foot pain and had uric acid done that showed the uric acid level was 17.6. Her BNP today was 3605. Patient had a chest x-ray done this morning that showed bilateral interstitial opacities consistent with pulmonary edema. Patient had echocardiogram done, but the result of which is not available yet. The patient had been followed by Dr. Chema Rocha, cardiology. PAST MEDICAL HISTORY: As above. PAST SURGICAL HISTORY: CORONARY angiogram. FAMILY HISTORY: No history of any kidney disease. ALLERGIES: NO KNOWN DRUG ALLERGIES. MEDICATIONS: Currently, the patient is on metoprolol, colchicine 0.6 mg p.o. daily, Uloric, ceftriaxone, tramadol, pantoprazole, aspirin, alprazolam, lactulose, and insulin. REVIEW OF SYSTEMS GENERAL: No fatigue. No fever. No chills. HEENT: No headache or blurred vision. NECK: No dysphagia. CARDIOVASCULAR: No chest pain. No PND. No orthopnea. RESPIRATORY: No shortness of breath or dyspnea on exertion. No cough. No hemoptysis. GI: No nausea, vomiting, diarrhea, constipation, abdominal pain, hematemesis, melena or hematochezia. GENITOURINARY: Has a Graham catheter. MUSCULOSKELETAL: Positive left foot pain with redness. PHYSICAL EXAMINATION VITAL SIGNS: Blood pressure 109/76, pulse of 87, respirations 18, 100% on 3 liters of nasal cannula. GENERAL: Awake, alert. Not in apparent distress. HEENT: PERRLA. Extraocular muscles intact. NECK: Positive external jugular venous encroachment. HEART: S1 and S2. LUNGS: Bilateral crackles. ABDOMEN: Soft. Bowel sounds positive. EXTREMITIES: No edema. NEUROLOGICAL: No focal deficits. LABORATORY DATA: Sodium 126, potassium 4.4, chloride 93, CO2 of 12, BUN 107, creatinine 4.06, glucose is 171, calcium is 9.1. White cell count is 20.1, hemoglobin 13.6, platelet count is 329. UA: No nitrite, no leukocyte esterase, no rbc's. Blood culture and urine culture are pending. ASSESSMENT AND PLAN 1. Acute kidney injury. Baseline creatinine is unknown. This acute worsening from admission could be secondary to contrast-induced nephropathy. Patient currently has evidence of volume overload. Saturating on 3-liter nasal cannula. We will hold off any IV fluid or any diuretics today. We will repeat the lab in the morning and monitor the urine output. If serum creatinine is worsening or patient is oliguric, will need hemodialysis. We will check renal ultrasound. We will avoid all nephrotoxic medications. 2. Coronary artery disease, status post stents. Cardiology is following. 3. Gout, on Uloric and colchicine for acute gouty attack. 4. Diabetes type 2 PER PRIMARY 5. Hypertension, controlled. 6. Leukocytosis. Follow up on all the cultures. Patient was started on ceftriaxone. I want to thank Dr. Morales for the consult. Job#: [id number] VAS FINESSE
[2018-07-21] MEDS: TRAMADOL HCL 50 MG TAB PO PRN (02:32)
[2018-07-21 04:58] LABS: BASOPHILS # (AUTO) 0.1 (0.0-0.1); BASOPHILS % 0.3 % (0.0-1.0); EOSINOPHILS % 0.1 % (0.0-6.0); HEMATOCRIT 38.5 % (34.2-44.1); HEMOGLOBIN 12.8 g/dL (12.0-16.0); LYMPHOCYTES # (AUTO) 1.1 (1.0-3.2); LYMPHOCYTES % 5.9 % (18.0-39.1); MEAN CORPUSCULAR HEMOGLOBIN 31.4 pg (28-32); MEAN CORPUSCULAR HGB CONC 33.2 g/dL (31-35); MEAN CORPUSCULAR VOLUME 94.4 fL (81-99); MONOCYTES # (AUTO) 1.3 (0.2-0.8); MONOCYTES % 7.1 % (4.4-11.3); NEUTROPHILS # (AUTO) 14.8 (2.1-6.9); NEUTROPHILS % 83.2 % (38.7-80.0); PLATELET COUNT 334 x10e3/uL (140-360); RED BLOOD COUNT 4.08 x10e6/uL (3.6-5.1); RED CELL DISTRIBUTION WIDTH 15.3 % (11.7-14.4)
[2018-07-21 05:32] LABS: CREATININE, SERUM 4.34 mg/dL (0.57-1.11)
[2018-07-21] MEDS: INSULIN LISPRO 100 UNIT/1 ML 3ML VIAL SQ SCH ×3 (05:39→18:28)
--- NOTE | 2018-07-21 07:02 | NUR ---
Received patient semi fowlers position, side rails upx2, call light within reach, bed alarm on. Resting with eyes closed. Arousable to verbal stimuli. Respirations even and unlabored. Will continue to monitor.
[2018-07-21] MEDS: METOPROLOL TARTRATE 25 MG TAB PO SCH ×2 (08:45→17:00)
[2018-07-21] MEDS: COLCHICINE 0.6 MG TAB PO SCH (08:45)
[2018-07-21] MEDS: PANTOPRAZOLE SOD 40 MG TABEC PO SCH (08:45)
[2018-07-21] MEDS: MEGACE 400MG/ 10ML CUP PO SCH (08:45)
[2018-07-21] MEDS: TICAGRELOR 90 MG TABLET PO SCH ×2 (08:45→17:00)
[2018-07-21] MEDS: ASPIRIN 81 MG CHEW TAB PO SCH (08:45)
[2018-07-21] MEDS: FEBUXOSTAT 80 MG TAB PO SCH (08:45)
[2018-07-21 11:28] LABS: BAND NEUTROPHILS % (MANUAL) 1 %; LYMPHOCYTES % (MANUAL) 5 % (19-48); MONOCYTES % (MANUAL) 8 % (3.4-9.0); NEUTROPHILS % (MANUAL) 83 % (40-74)
[2018-07-21 11:45] LABS: POIKILOCYTOSIS MODERATE
[2018-07-21 11:46] LABS: ANISOCYTOSIS MODERATE; HYPOCHROMASIA SLIGHT; PLATELET ESTIMATE ADEQUATE; PLATELET MORPHOLOGY COMMENT FEW GIANT; RBC MORPHOLOGY COMMENT NORMAL
--- NOTE | 2018-07-21 12:01 | Diagnostic Imaging Report ---
EXAM: RENAL ULTRASOUND Date: 07/21/2018 12:00 AM Indication: Renal failure Comparison: None Technique: Sonographic evaluation of the kidneys. Color doppler was utilized to supplement evaluation. FINDINGS: KIDNEYS: Right: Measures 11.4 cm in length. No hydronephrosis or solid mass lesion identified. Renal cortex measures 1.6 cm. Left: Measures 10.4 cm in length. No hydronephrosis or solid mass lesion identified. Renal cortex measures 1.8 cm. URINARY BLADDER: Decompressed Graham catheter. OTHER: None. IMPRESSION: Within limitations of body habitus, grossly unremarkable renal ultrasound. Signed by: Dr. Cassius Camara MD on 07/21/2018 11:57 AM
--- NOTE | 2018-07-21 12:21 | NUR ---
Pt asleep. Pt's Marco Paz at bedside. Pt lives with her in a 1st floor apartment. Prior to hospitalization, pt was independent and able to drive. Pt is retired. Therapy is recommending inpatient rehab vs SNF for discharge. Pt's is agreeable to a rehab facility on discharge. CM provided a list of in network facilities. He said he will look some of them up today. CM to follow. Business card given for any questions/concerns.
[2018-07-21] MEDS: CEFTRIAXONE SOD 1 GM VIAL IV SCH (12:53)
--- NOTE | 2018-07-21 15:12 | Progress Note ---
DATE: July 21, 2018 CARDIOLOGY PROGRESS NOTE SUBJECTIVE: Patient overall feels lethargic and tired. No chest pain or shortness of breath. OBJECTIVE VITAL SIGNS: Temperature is 96.2, heart rate 75. Respirations are 21. Blood pressure 115/76. Oxygen saturation is 95% on 2 L nasal cannula. GENERAL: She is an ill-appearing woman, lethargic, in no apparent distress. CARDIOVASCULAR: Regular rate and rhythm. A 2/6 to 3/6 systolic murmur heard best at the base is present. Normal S1 and S2. LUNGS: Mildly decreased breath sounds at the bilateral bases with scattered rales. ABDOMEN: Soft. Nontender and nondistended. NEUROLOGIC: No focal deficits noted. EXTREMITIES: No edema. VASCULAR: 2+ pulses. MEDICATIONS: Reviewed. LABORATORY DATA: Reviewed. Sodium is 124, creatinine 4.34. IMAGING DATA: Reviewed. TELEMETRY: Reveals normal sinus rhythm. IMPRESSION 1. Inferior ST-elevation myocardial infarction, late presentation. 2. Pulmonary edema. 3. Acute kidney injury. 4. Ventricular septal defect post myocardial infarction. 5. Pneumonia. 6. Abnormal liver function tests. 7. Leukocytosis. RECOMMENDATIONS: Continue dual antiplatelet therapy with aspirin and Brilinta. Also, continue to hold statin given elevated liver function tests. She has a fairly significant ventricular septal defect in the inferior septal wall. However, she is currently hemodynamically stable. Nephrology is currently following the patient. Likely will need hemodialysis with volume removal. The patient remains fairly ill with multiple organ dysfunction. 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 Will continue to closely follow. Job#: [id number]
--- NOTE | 2018-07-21 15:26 | NUR ---
output 200cc. Paged to notify of output and labs.
--- NOTE | 2018-07-21 15:58 | NUR ---
aware of patient's status.
[2018-07-21 16:57] LABS: INR 1.5; PROTHROMBIN TIME 19.4 seconds (11.9-14.5)
--- NOTE | 2018-07-21 19:00 | NUR ---
Report given to oncoming nurse of patient's status. No s/s of acute distress noted.
--- NOTE | 2018-07-21 19:00 | NUR ---
RECEIVED PT IN BED AWAKE AND ALERT. PT AWARE OF PROCEDURE FOR HD PLACEMENT. DENIES PAIN AT THIS TIME. NO S/S OF DISTRESS. CALL LIGHT WITHIN REACH AND INSTRUCTED TO CALL FOR ASSISTANCE. BED ALARM SET. X2 SIDE RAILS UP.
--- NOTE | 2018-07-21 20:00 | NUR ---
PT WENT FOR HD CATH PLACEMENT IN IR.
[2018-07-21] MEDS ORDERED: LIDOCAINE HCL 1% LOCAL INJ 20 ML VIAL ONE (20:03)
--- NOTE | 2018-07-21 20:40 | NUR ---
Nutrition Intervention Note RD Recommendation(s) for Physician: - Continue ADA / cardiac diet as medically appropriate - Continue Glucerna BID to promote PO intake - Encourage PO and hydration - Obtain daily BMP; replace low lytes - Obtain daily weight - Consider alternative source of nutrition if PO intake is not improved with HD Plan of Care: RD following, monitoring for tolerance and adequacy Nutrition reason for involvement: Follow up RD Assessment 07/21: Chart reviewed. Nephrology is currently following the patient. Likely will need hemodialysis with volume removal. The patient remains fairly ill with multiple organ dysfunction. During my assessment, pt appears lethargic. on bedside provided most hx. Per , pt hasnt had any appetite during her hospital stay. Pt also hasnt been drinking much of the Glucerna. ~25% of recorded PO intake since admission. Appetite stimulant has been ordered. Pt denies any N/V/D/C. LBM 07/20. Will continue to monitor and follow. 07/15: Chart reviewed. 63yo F who is admitted for STEMI s/p stent on 07/14. During my assessment, pt reports poor appetite for 4-5days. Pt states I throw up whenever I eat. Pt denies any nausea or vomiting since admission. Pt reports having diarrhea for over 10days since started on Metformin a month ago; pt stopped taking the med. LBM 07/14 per chart. Pt has some missing bottom teeth but no complain of chewing or swallowing difficulty. Pt reports of UBW ~170lb; RD do not suspect of any acute weight loss at this time. Will continue to monitor and follow. Principal Problems/Diagnoses: STEMI s/p stent on 07/14, sepsis PMH: DM GI: LBM 07/20 per pt Skin: intact Labs: 07/21 Na 124 L, BUN 121 H, Creatinine 4.34 H, glucose 157 H (07/15) Na 129 L, BUN 48 H, Creat 2.23 H, Glucose 215 H Meds: insulin, rocephin, megace, protonix Ht: 63in Wt: 172lb 07/15 admit, 199lb 07/21 (possibly due to fluid accumulation) BMI: 30.5kg/m2 IBW: 115lb Malnutrition Evaluation (07/15) The patient does not meet criteria for a specified degree of malnutrition at this time. Will re-evaluate at follow-up as appropriate. Energy intake: <50% of estimated energy requirements for >5 days Weight loss: None Fat loss: None Muscle loss: None Nutrition Prescription (Diet Order): ADA cardiac diet Diet Adequacy: Not meeting calorie needs, Not meeting protein needs Diet Education Needs Assessment: Diet education indicated, but patient not appropriate for education at this time. Nutrition Care Level: moderate Nutrition Diagnosis: Inadequate oral intake related to current medical status as evidenced by pt reports of poor appetite and PO intake for over a week. Goal: Patient will meet 75-100% of estimated needs by follow up Progress: Not Progressing Interventions: Mineral/carbohydrate modified diet, Commercial beverage, IVF, Prescription medications Monitoring/Evaluation: Total energy intake, Total protein intake, IVF, Prescription medication, Modified diet, Liquid supplement, Weight change Signed: Milka Gonsalez MS, RD, LD
--- NOTE | 2018-07-21 22:00 | NUR ---
PT RETURNED FROM IR AND IN STABLE CONDITION.
[2018-07-21] MEDS ORDERED: HEPARIN SOD (PORCINE) 1000 UNIT/ML SDV IV PRN (23:00)
[2018-07-21] MEDS ORDERED: SODIUM CHLORIDE 0.9% 1000ML 1,000 ML IV PRN (23:00)
[2018-07-21] MEDS ORDERED: MANNITOL 25% 12.5GM/50 ML VIAL IV PRN (23:00)
[2018-07-22] VITALS (71 sets, daily range): BP systolic 33–191; BP diastolic 20–176
--- NOTE | 2018-07-22 01:25 | NUR ---
DIAYLISIS ENDED. 1L OF FLUID REMOVED. PT TOLERATED PROCEDURE WELL.
[2018-07-22 05:23] LABS: BASOPHILS # (AUTO) 0.1 (0.0-0.1); BASOPHILS % 0.4 % (0.0-1.0); EOSINOPHILS % 0.1 % (0.0-6.0); HEMATOCRIT 39.4 % (34.2-44.1); HEMOGLOBIN 12.9 g/dL (12.0-16.0); LYMPHOCYTES # (AUTO) 0.6 (1.0-3.2); LYMPHOCYTES % 3.3 % (18.0-39.1); MEAN CORPUSCULAR HEMOGLOBIN 30.9 pg (28-32); MEAN CORPUSCULAR HGB CONC 32.7 g/dL (31-35); MEAN CORPUSCULAR VOLUME 94.5 fL (81-99); MONOCYTES # (AUTO) 1.2 (0.2-0.8); MONOCYTES % 6.4 % (4.4-11.3); NEUTROPHILS # (AUTO) 15.6 (2.1-6.9); NEUTROPHILS % 86.5 % (38.7-80.0); PLATELET COUNT 356 x10e3/uL (140-360); RED BLOOD COUNT 4.17 x10e6/uL (3.6-5.1)
[2018-07-22] MEDS: INSULIN LISPRO 100 UNIT/1 ML 3ML VIAL SQ SCH ×4 (05:36→18:00)
[2018-07-22 05:37] LABS: ANION GAP 24.6 mmol/L (8-16); CREATININE, SERUM 4.23 mg/dL (0.57-1.11); MAGNESIUM 2.9 MG/DL (1.3-2.1); PHOSPHORUS 7.4 MG/DL (2.3-4.7); POTASSIUM 4.6 mmol/L (3.5-5.1)
--- NOTE | 2018-07-22 07:15 | NUR ---
pt asleep resp even and unlabored at this time, pt arousal to touch and name. call light in reach.
[2018-07-22] MEDS: PANTOPRAZOLE SOD 40 MG TABEC PO SCH (07:30)
--- NOTE | 2018-07-22 07:31 | Diagnostic Imaging Report ---
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 Todd Pre-operative diagnosis: Acute kidney injury Post-operative diagnosis: Acute kidney injury Conscious Sedation: None Additional Medications: Lidocaine 1% for local anesthesia Fluoroscopy time: 1 minute Frontal Air Kerma: 50.78 mGy Contrast used: None Estimated blood loss: Minimal Blood products administered: None Specimens: None Implants: 13 [place] 15 cm triple-lumen central venous catheter Condition at completion: Stable Disposition: Returned to floor DISCUSSION: Informed consent was obtained and documented in the medical record after discussion of risks and benefits. The patient was placed in the supine position on the hospital bed. Preliminary sonographic evaluation confirmed patency of the right internal jugular vein, evidenced by compressibility. The right neck was prepped and draped in the standard sterile fashion. 1% lidocaine was infiltrated into the skin and subcutaneous tissues for local anesthesia. Then under continuous sonographic guidance, an 18-gauge singlewall needle was used to access the right internal jugular vein. A permanent sonographic image was stored in the medical record. A 0.0 3 5-in. wire was advanced centrally into the IVC under fluoroscopic guidance. The needle was removed over the wire and the tract was dilated. Then a 13 [place], 15 cmtriple-lumen hi flow central venous catheter was advanced over the wire to full depth. The wire was removed, and the catheter tip was positioned at the low superior vena cava. Each lumen showed adequate bidirectional flow and was flushed with sterile saline. The catheter was secured to the skin with monofilament nylon suture and a sterile dressing was applied. The patient tolerated the procedure well without immediate complication. FINDINGS: Patent right internal jugular vein. IMPRESSION: Successful placement of a temporary hemodialysis catheter (13 [place], 15 cm triple-lumen) by a right internal jugular approach. Signed by: Dr. Leodan Todd M.D. on 07/22/2018 7:28 AM
[2018-07-22] MEDS: FEBUXOSTAT 80 MG TAB PO SCH (09:00)
[2018-07-22] MEDS: MEGACE 400MG/ 10ML CUP PO SCH (09:00)
[2018-07-22] MEDS: METOPROLOL TARTRATE 25 MG TAB PO SCH ×2 (09:00→17:00)
[2018-07-22] MEDS: ASPIRIN 81 MG CHEW TAB PO SCH (09:00)
[2018-07-22] MEDS: TICAGRELOR 90 MG TABLET PO SCH ×2 (09:00→17:00)
[2018-07-22] MEDS: COLCHICINE 0.6 MG TAB PO SCH (09:00)
[2018-07-22 09:09] LABS: LYMPHOCYTES % (MANUAL) 3 % (19-48); MONOCYTES % (MANUAL) 7 % (3.4-9.0); NEUTROPHILS % (MANUAL) 90 % (40-74)
[2018-07-22 09:10] LABS: ANISOCYTOSIS SLIGHT; HYPOCHROMASIA SLIGHT; PLATELET ESTIMATE ADEQUATE; PLATELET MORPHOLOGY COMMENT NORMAL; POLYCHROMASIA FEW; RBC MORPHOLOGY COMMENT NORMAL
--- NOTE | 2018-07-22 09:37 | Diagnostic Imaging Report ---
PROCEDURE: CHEST SINGLE (PORTABLE) COMPARISON: 07/20/2018. INDICATIONS: SHORTNESS OF BREATH FINDINGS: Interval placement of a right internal jugular hemodialysis catheter. The tip projects over the low superior vena cava. Stable low lung volumes, enlargement of the cardiac silhouette, and prominence of the pulmonary interstitium. No sizable pleural effusion or pneumothorax. No acute osseous abnormality. CONCLUSION: Interval placement of a temporary hemodialysis catheter via right internal jugular approach, appropriately positioned. Persistent low lung volumes with mild cardiomegaly and interstitial pulmonary edema. Dictated by: Leodan Todd M.D. on 07/22/2018 at 9:46 Electronically approved by: Leodan Todd M.D. on 07/22/2018 at 9:46
[2018-07-22] MEDS: CEFTRIAXONE SOD 1 GM VIAL IV SCH (12:16)
--- NOTE | 2018-07-22 12:37 | NUR ---
pt up to bedside by her , pt unstable to walk to sat with her, Asking to not leave her alone, pt asking to walk to bathroom, while convincing pt she has a Graham and wearing a diaper.
--- NOTE | 2018-07-22 15:50 | NUR ---
dialysis nurse here, to start dialysis, I was called for pt low b/p 54/29, called a rapid response, blood pressure retaken unable to recover.
[2018-07-22] MEDS ORDERED: ALBUMIN IV ONE (16:07)
--- NOTE | 2018-07-22 16:19 | NUR ---
Rapid response called today 07/22. Pt being transferred to ICU now. Will need new PT orders to resume therapy due to change in status and requiring higher level of care. Addendum: 07/22/18 at 1619 by VALENCIA CARRANZA PT Amended: Links added.
--- NOTE | 2018-07-22 16:30 | NUR ---
pt transferred to ICU, pt at bedside.
[2018-07-22] MEDS ORDERED: SODIUM CHLORIDE 0.9% 1000ML 1,000 ML IV ONE (16:45)
[2018-07-22] MEDS: NOREPINEPHRINE INJ 4MG/4ML 8 MG in DEXTROSE 5% 250ML 250 ML IV SCH ×2 (16:52→21:04)
[2018-07-22 16:54] LABS: BASOPHILS # (AUTO) 0.1 (0.0-0.1); BASOPHILS % 0.3 % (0.0-1.0); HEMATOCRIT 39.9 % (34.2-44.1); HEMOGLOBIN 12.6 g/dL (12.0-16.0); LYMPHOCYTES # (AUTO) 0.6 (1.0-3.2); LYMPHOCYTES % 2.7 % (18.0-39.1); MEAN CORPUSCULAR HEMOGLOBIN 31.7 pg (28-32); MEAN CORPUSCULAR HGB CONC 31.6 g/dL (31-35); MEAN CORPUSCULAR VOLUME 100.5 fL (81-99); MONOCYTES % 4.9 % (4.4-11.3); NEUTROPHILS # (AUTO) 18.2 (2.1-6.9); NEUTROPHILS % 87.4 % (38.7-80.0); PLATELET COUNT 330 x10e3/uL (140-360); RED BLOOD COUNT 3.97 x10e6/uL (3.6-5.1); RED CELL DISTRIBUTION WIDTH 16.6 % (11.7-14.4)
--- NOTE | 2018-07-22 17:02 | Progress Note ---
DATE: July 22, 2018 CARDIOLOGY PROGRESS NOTE SUBJECTIVE: Patient appears in no apparent distress although she is mildly confused. Denies any chest pain or shortness of breath. OBJECTIVE VITAL SIGNS: Temperature is 95.9 degrees, heart rate is 71, respirations are 19, blood pressure is 101/64, oxygen saturation is 93% on 2 L nasal cannula. GENERAL: She is a chronically ill-appearing woman in no apparent distress. Mildly lethargic. CARDIOVASCULAR: Regular rate and rhythm with systolic murmur heard best throughout the precordium. LUNGS: Diminished breath sounds at bilateral bases. ABDOMEN: Soft and nontender. NEUROLOGIC: The patient is lethargic. MEDICATIONS: Reviewed. LABORATORY DATA: Reviewed. Shows a white blood cell count of 18, hemoglobin of 12.9 and platelets of 356,000. Creatinine of 4.23, sodium of 129. Chest x-ray shows interval placement of a temporary hemodialysis catheter and persistent low lung volumes with mild cardiomegaly and interstitial pulmonary edema. Telemetry monitoring revealed normal sinus rhythm. IMPRESSION 1. Inferior ST-elevation myocardial infarction, late presentation. 2. Mild pulmonary edema. 3. Acute kidney injury. 4. Ventricular septal defect post myocardial infarction. 5. Pneumonia. 6. Abnormal liver function tests. 7. Sepsis and leukocytosis. RECOMMENDATIONS: Continue dual antiplatelet therapy in regards to her recent percutaneous coronary intervention. We are holding statins given elevated liver function tests. She overall is hemodynamically stable in regards to her ventricular septal defect. Will allow this to heal. There is no emergent need for surgical closure or percutaneous closure approach at this point in time. The patient will be initiated on hemodialysis for adequate volume removal. In stating this, she appears overall ill with dysfunction of multiple organ systems. Prognosis is guarded. Low threshold for ICU transfer. Continue to follow closely. Job#: [id number] [place]
--- NOTE | 2018-07-22 17:06 | Diagnostic Imaging Report ---
Examination: Single AP view of the chest. COMPARISON: Earlier 07/22/2018 INDICATION: Intubation DISCUSSION: Interval intubation, with the tip of the endotracheal tube projecting 3.5 cm above the irene. Right internal jugular temporary hemodialysis catheter is stable in position when accounting for differences in patient positioning. Stable appearance of the heart and lungs, with mild enlargement of the cardiac silhouette and pulmonary venous congestion. No new consolidation or pneumothorax. No acute osseous abnormality. IMPRESSION: Interval intubation with the endotracheal tube tip projecting 3.5 cm above the irene. Stable position of right internal jugular temporary hemodialysis catheter. Stable appearance of the heart and lungs relative to 07/22/2018 at 0926 hours. Persistent mild enlargement of the cardiac silhouette and pulmonary venous congestion. Signed by: Dr. Leodan Todd M.D. on 07/22/2018 5:03 PM
[2018-07-22 17:10] LABS: ALBUMIN 2.4 g/dL (3.5-5.0); ALBUMIN/GLOBULIN RATIO 0.6 (0.8-2.0); ANION GAP 34.1 mmol/L (8-16); CALCIUM 8.5 mg/dL (8.4-10.2); CREATININE, SERUM 5.11 mg/dL (0.57-1.11); POTASSIUM 5.1 mmol/L (3.5-5.1)
[2018-07-22 17:14] LABS: INR 2.17; PROTHROMBIN TIME 25.8 seconds (11.9-14.5)
[2018-07-22 17:15] LABS: PARTIAL THROMBOPLASTIN TIME 36.5 seconds (23.8-35.5)
[2018-07-22] MEDS ORDERED: SODIUM BICARBONATE 8.4% SYRING 50 ML ONE (17:15)
[2018-07-22 17:16] LABS: CREATINE KINASE MB 4.7 ng/mL (0-5.0)
[2018-07-22] MEDS ORDERED: WATER STERILE 10 ML VIAL ONE (17:25)
[2018-07-22] MEDS ORDERED: VECURONIUM BROMIDE FOR INJ 20 MG VIAL ONE (17:25)
--- NOTE | 2018-07-22 17:31 | NUR ---
Dr. Rocha paged at this time. Awaiting call back.
[2018-07-22] MEDS ORDERED: EPINEPHRINE HCL SYRINGE ONE ×2 (17:32→17:34)
--- NOTE | 2018-07-22 17:33 | NUR ---
Dr. Boudreaux called at this time. Dr. Mariscal speaking to Dr. Boudreaux at this time.
[2018-07-22] MEDS ORDERED: SODIUM CHLORIDE 0.9% 250ML 250 ML ONE (17:35)
--- NOTE | 2018-07-22 17:35 | NUR ---
Dr. Adrian speaking to Dr. Cuevas at this time.
[2018-07-22] MEDS ORDERED: EPINEPHRINE HCL 1:1000 4 MG in DEXTROSE 5% 250ML 250 ML IV PRN (17:45)
[2018-07-22] MEDS ORDERED: SODIUM BICARBONATE 8.4% INJ 50 ML SYR IV STA (17:58)
[2018-07-22] MEDS ORDERED: SODIUM BICARBONATE 8.4% SYRING 100 ML ONE (17:59)
[2018-07-22 18:04] LABS: ABG HCO3 9 mmol/L (23-28); ABG PCO2 26 mmHg (41-51); ABG PH 7.13 (7.31-7.41); ABG PO2 550 mmHg (80-105)
--- NOTE | 2018-07-22 18:14 | NUR ---
Pt rec'd intubated at 1630, unresponsive, placed on ventilator, then manually ventilated with BVM. HR dropped, rapid response called. ABG unsuccessful in radial artery. Pt eventually maxed out on Levophed, dopamine, and epinephrine. MD Cassius Rocha, photograph mounter, called in. See RR form for details.
--- NOTE | 2018-07-22 19:04 | NUR ---
Report given to Maria Eugenia LINARES. Per spouse, pt remains a full code, states that family is arriving. Solids Control Technician called
[2018-07-22] MEDS ORDERED: SODIUM BICARBONATE 8.4% SYRING 150 ML in DEXTROSE 5% 1,000 ML IV SCH (20:20)
--- NOTE | 2018-07-22 20:20 | NUR ---
Per ENEDELIA Quintero to use [facility] blue port for Bicarb drip infusion.
--- NOTE | 2018-07-22 20:24 | Progress Note ---
DATE: July 22, 2018 CARDIOLOGY PROGRESS NOTE SUBJECTIVE: Rapid response was called earlier as patient became unresponsive. No CPR was required as patient never lost pulse. However, due to being unresponsive and hypoxemic, was intubated emergently and started on pressors. Pressor requirements continued to increase and now is on 3 pressors, epinephrine, dopamine and norepinephrine, all max'ed out. EKG was performed. Shows unchanged residual ST elevations and widened QRS. I reviewed her medical records over the last 48 hour. Shows worsening renal function as well as worsening metabolic issues including worsening electrolytes. Most recent bicarb was 8 prior to her becoming unresponsive, consistent with severe metabolic acidosis secondary to renal failure. She remains hypoxemic despite being intubated because of severe pulmonary edema. No significant arrhythmias were noted. Remains in sinus tachycardia. Overall, this patient presented several days ago to the hospital with late presentation of inferior GA. She had already had chest pain for several weeks at home prior to presenting and was found to have a completely occluded right coronary artery under emergent coronary angiography. PCI was performed to the RCA with excellent results and rastafarian of blood flow; however, given that patient was a late presenter, she ended up developing ventricular septal defect post GA. Continued to have worsening renal function over the last several days and was finally to undergo dialysis later this afternoon. However, prior to starting dialysis, she decompensated and became unresponsive. At this point, she is critically ill, on max'ed out multiple pressors with severe acidosis and hypoxemic. She has a post GA VSD. Although her LV function is not poor, forward flow is poor secondary to relatively largely VSD. I discussed her multiple organ failure with her , and he understands that overall prognosis is extremely poor and patient may not survive. From a cardiovascular standpoint, no further intervention would be of any help at this time. Patient is likely too unstable for any transfer to a higher level of care facility. If possible, dialysis and correction of acidemia may help correct her hypotension and hypoxia; however, with her blood pressure being so low, this may not be possible as well. Will defer to nephrology regarding this. I spent close to 60 minutes of critical care time discussing care with nursing staff and discussing her condition with the family. Thank you. We will continue to monitor and follow closely. Job#: [id number] MARISA
--- NOTE | 2018-07-22 20:30 | NUR ---
ASSESSMENT: Spiritual Distress Examining Officer called in by RN. Pt's experiencing anticipatory grief. Pt's expressing emotions thru words and tears. Pt's states her son is en route from [place]. Pt's states his identifies as Anabaptism but "isn't shinto." Intervention: Provided empathic unhurried listening. Facilitated illness review and storytelling. Provided prayer and information on how to reach rotating equipment specialist, if needed. Facilitated conversation about end-of-life issues. Outcome: Pt's expressed appreciation for visit. Will follow as able. ANN CLARK Examining Officer Spiritual Care Department O: [phone] Pager: [phone] ([phone] number calling from)
[2018-07-22] MEDS: DEXTROSE 5% IV PRN (21:07)
[2018-07-22] MEDS: EPINEPHRINE HCL IV PRN (21:07)
[2018-07-22] MEDS: SODIUM BICARBONATE 8.4% SYRING 150 ML in DEXTROSE 5% 1,000 ML IV SCH (21:28)
[2018-07-23] VITALS (69 sets, daily range): BP systolic 53–135; BP diastolic 25–105
[2018-07-23] MEDS: NOREPINEPHRINE INJ 4MG/4ML 8 MG in DEXTROSE 5% 250ML 250 ML IV SCH ×3 (00:47→05:35)
[2018-07-23] MEDS: INSULIN LISPRO 100 UNIT/1 ML 3ML VIAL SQ SCH ×3 (01:40→12:00)
[2018-07-23] MEDS: EPINEPHRINE HCL IV PRN (04:41)
[2018-07-23] MEDS: DEXTROSE 5% IV PRN (04:41)
[2018-07-23 05:29] LABS: BASOPHILS # (AUTO) 0.1 (0.0-0.1); BASOPHILS % 0.4 % (0.0-1.0); HEMATOCRIT 40.4 % (34.2-44.1); HEMOGLOBIN 12.8 g/dL (12.0-16.0); LYMPHOCYTES # (AUTO) 0.5 (1.0-3.2); LYMPHOCYTES % 1.4 % (18.0-39.1); MEAN CORPUSCULAR HEMOGLOBIN 32.2 pg (28-32); MEAN CORPUSCULAR HGB CONC 31.7 g/dL (31-35); MEAN CORPUSCULAR VOLUME 101.5 fL (81-99); MONOCYTES # (AUTO) 1.2 (0.2-0.8); MONOCYTES % 3.6 % (4.4-11.3); NEUTROPHILS % 90.8 % (38.7-80.0); PLATELET COUNT 311 x10e3/uL (140-360); RED BLOOD COUNT 3.98 x10e6/uL (3.6-5.1); RED CELL DISTRIBUTION WIDTH 16.8 % (11.7-14.4)
[2018-07-23] MEDS: SODIUM BICARBONATE 8.4% SYRING 150 ML in DEXTROSE 5% 1,000 ML IV SCH (05:34)
[2018-07-23 06:09] LABS: ALBUMIN 2.1 g/dL (3.5-5.0); ALBUMIN/GLOBULIN RATIO 0.6 (0.8-2.0); ANION GAP 36.7 mmol/L (8-16); CALCIUM 7.2 mg/dL (8.4-10.2); CREATININE, SERUM 5.18 mg/dL (0.57-1.11); MAGNESIUM 2.6 MG/DL (1.3-2.1); PHOSPHORUS 12.3 MG/DL (2.3-4.7); POTASSIUM 4.7 mmol/L (3.5-5.1)
--- NOTE | 2018-07-23 07:00 | NUR ---
discussed POC with family members. family verbalized understanding. will continue to monitor and intervene as needed
--- NOTE | 2018-07-23 07:00 | NUR ---
ASSESSMENT: Spiritual distress Pt's family (, sisters and son) at bedside. Pt's sister states, "We are praying for a miracle." Pt's family looking for signs of improvement. Intervention: Provided hospitality and empathic listening. Provided prayer. Provided information on how to reach notched blade loader, if needed. Outcome: Will continue to follow as able. ANN CLARK Window Cutter Spiritual Care Department O: [phone] Pager: [phone] ([phone] number calling from)
[2018-07-23 07:10] LABS: LYMPHOCYTES % (MANUAL) 2 % (19-48); MONOCYTES % (MANUAL) 5 % (3.4-9.0); MYELOCYTES % (MANUAL) 1 % (0-0); NEUTROPHILS % (MANUAL) 92 % (40-74); NUCLEATED RED BLOOD CELLS 1
[2018-07-23 07:11] LABS: ANISOCYTOSIS SLIGHT; PLATELET ESTIMATE ADEQUATE; PLATELET MORPHOLOGY COMMENT NORMAL; RBC MORPHOLOGY COMMENT NORMAL
[2018-07-23] MEDS: PANTOPRAZOLE SOD 40 MG TABEC PO SCH (07:30)
[2018-07-23] MEDS: METOPROLOL TARTRATE 25 MG TAB PO SCH (08:55)
[2018-07-23] MEDS: TICAGRELOR 90 MG TABLET PO SCH (08:55)
[2018-07-23] MEDS: ASPIRIN 81 MG CHEW TAB PO SCH (08:55)
[2018-07-23] MEDS: FEBUXOSTAT 80 MG TAB PO SCH (08:57)
[2018-07-23] MEDS: MEGACE 400MG/ 10ML CUP PO SCH (08:57)
--- NOTE | 2018-07-23 09:24 | NUR ---
called Dr. Espinal office spoke with Joel, waiting on return call for further orders
--- NOTE | 2018-07-23 09:39 | NUR ---
spoke with Dr. Gonzalez for new pt consult, Rec'd orders for ABG.
[2018-07-23 10:07] LABS: ABG HCO3 11 mmol/L (23-28); ABG PCO2 22 mmHg (41-51); ABG PH 7.32 (7.31-7.41); ABG PO2 47 mmHg (80-105)
[2018-07-23] MEDS ORDERED: CEFEPIME HCL 1 GM VIAL IV SCH (10:30)
[2018-07-23] MEDS ORDERED: VANCOMYCIN 1GM/NS 250 ML 250 ML IV ONE (10:45)
--- NOTE | 2018-07-23 11:41 | NUR ---
pt rec'ing Sodium HCO3 through blue HD port per OK by Dr. Bolton. paged Dr. Bolton for OK to infuse new ABX meds also through blue port. waiting on return call for orders
--- NOTE | 2018-07-23 12:28 | NUR ---
PATIENT TO ICU RAPID RESPONSE FOR RESPIRATORY FAILURE AND BECAME UNCONSCIOUS. PATIENT WAS INTUBATED AND SEDATED THEN TRANSFERRED TO ICU. DPA UNABLE TO BE RECEIVED. PATIENT FAMILY SPEAKING WITH DOCTORS REGARDING DNR STATUS AND WITHDRAWAL OF CARE WITH ONLY COMFORT CARE. PATIENT MAX'D OUT ON 3 VASOPRESSORS. AND PER ENVELOPE FOLDING MACHINE OPERATOR PATIENT PUPILS SLUGGISH. CM INFORMATION WRITTEN ON BOARD FOR ANY ASSISTANCE. FAMILY REQUEST TO POSTPONE DPA
--- NOTE | 2018-07-23 13:41 | Progress Note ---
DATE: July 23, 2018 CARDIOLOGY PROGRESS NOTE SUBJECTIVE: Patient was found nonresponsive yesterday evening with severe sepsis, hypotension, acute respiratory failure and shock. Currently intubated and on 3 vasopressors in the intensive care unit. Unable to obtain a review of systems. OBJECTIVE VITAL SIGNS: Temperature is 100.6 degrees. Heart rate is 105. Respirations are 15. Blood pressure is 119/80. Oxygen saturation is 98%, being mechanically ventilated on 28% FiO2. GENERAL: She is a chronically ill-appearing woman, minimally arousable. HEAD: Atraumatic. ENT: Oropharynx has ET tube present. CARDIOVASCULAR: Regular rate and rhythm. Loud systolic murmur heard throughout the precordium. LUNGS: Diminished breath sounds at bilateral bases. ABDOMEN: Obese. Soft. EXTREMITIES: Mottling noted with trivial edema. NEUROLOGIC: Minimal response. LABORATORY DATA: All reviewed. Notable for a white blood cell count of 34, hemoglobin 12.8, platelets 311. Blood gas shows pH 7.3, pCO2 22, oxygen saturation 81% with pO2 of 47. Sodium 129, bicarb 8, creatinine 5.18, glucose 448, phosphorus 12.3, AST 750, ALT 363, alkaline phosphatase 370. Repeat troponin was lower than previous values at 14.7. CK and CK-MB were within normal limits. INR is 2.17. Cultures are pending. Chest x-ray shows "stable appearance of the heart and lungs with mild cardiac enlargement and mild pulmonary venous congestion." TELEMETRY MONITORING: Normal sinus rhythm. IMPRESSION 1. Inferior ST-elevation myocardial infarction, late presentation. 2. Ventricular septal defect post myocardial infarction. 3. Acute kidney injury. 4. Acute liver injury. 5. Sepsis. 6. Shock. 7. Pulmonary edema. 8. Acute respiratory failure with hypoxemia. RECOMMENDATIONS: Patient is currently on 3 vasopressor and inotropic agents. Her oxygen requirements have increased. The patient has severe metabolic acidosis, which is being corrected with bicarbonate as well. The patient is currently too unstable for transfer for higher level of care, although no surgical options are available at this point in time for ventricular septal defect, as she is too high risk and mortality is very high. Continue to correct all electrolytes and metabolic derangements. Mechanical ventilation per pulmonary/critical care. Plans for dialysis have been delayed due to her severe compromise in condition and likely will not tolerate dialysis session. Poor long-term prognosis, and this was discussed with the family at bedside. Otherwise, continue cardiovascular medications and continue to wean vasopressors as tolerated. Job#: [id number]
[2018-07-23] MEDS ORDERED: SODIUM BICARBONATE 8.4% SYRING 150 ML in STERILE WATER IV SOLN 1,000 ML IV SCH (14:00)
[2018-07-23] MEDS ORDERED: METRONIDAZOLE 500MG/NS 100ML 100 ML IV SCH (14:00)
--- NOTE | 2018-07-23 14:52 | NUR ---
pt family members decided to make patient a modified DNR. Family wants to stop all pressors, no antiarrhythmics, no chest compressions, no shock/defib, no venti mask. Dr. Litzy Morales notified and rec'd orders to make pt a DNR upon family request. will continue to monitor.
--- NOTE | 2018-07-23 15:01 | Consultation ---
DATE OF CONSULTATION: July 23, 2018 PULMONARY CRITICAL CARE MEDICINE CONSULT REFERRING PHYSICIAN: Dr. Morales. REASON FOR REFERRAL: Respiratory failure. HISTORY: Ms. José is a 63-year-old female with acute respiratory failure. Patient presented on July 14, 2018. The patient was having chest tightness, shortness of breath at that time. White count was 19 on that day. The BUN was 43, creatinine was 2.5. LFTs were mildly elevated at 158 ALT, 145 AST. Troponin was 26. Albumin 3.3. It was found that the troponins were already downtrending at that time. Echocardiogram was performed, and this echocardiogram already demonstrates LVEF 55% to 60% with large muscular VSD although no fern free-wall rupture nor pericardial effusion. Patient subsequently was under attempts for optimization. However, patient went into worse renal failure with creatinine up to 5.2 and was being prepared for dialysis. Patient eventually required intubation due to shortness of breath. Patient also with multiple pressor requirements. I came, and I reviewed the chart and assessed the patient after being called a short while ago. PAST MEDICAL HISTORY: STEMI on presentation status post PCI, hypertension, diabetes. MEDICATIONS: As listed. ALLERGIES: NO KNOWN DRUG ALLERGIES. SOCIAL HISTORY: Patient unable to provide as she is intubated. PHYSICAL EXAMINATION: Vital signs totally unstable per record. Patient in room on bed on 3 pressors already. Lungs with bilateral air entry. LABS: Labs reviewed per the electronic record. IMPRESSION AND PLAN 1. Acute respiratory failure, intubated. 2. Hypoxemia, severe. Presumptive in pulmonary edema. 3. Recent ST-elevation myocardial infarction status post percutaneous coronary intervention and ventricular septal defect detection. 4. Acute kidney failure. 5. Shock, multifactorial. 6. Acute liver failure. 7. Severe leukocytosis. 8. Coagulopathy not otherwise specified, multifactorial. 9. Possible urinary tract infection. 10. Hypertension. 11. Diabetes. Continue pressors for now. Continue intubated state and modify ventilator. Underlying issues seem very severe in a patient with very poor and dismal prognosis. Continue to treat multiorgan failure. Thank you very much for this consult. Please call for questions. Greater than 30 minutes of direct care today. Multiple coordination. Job#: [id number] [place]
--- NOTE | 2018-07-23 15:05 | NUR ---
ASSESSMENT: Spiritual Distress Pt's family overwhelmed by pt's illness. Pt's struggled with end-of-life decisions. Intervention: Provided empathic listening. Facilitated EOL discussions with pt's family. Facilitated storytelling. Provided prayer. Outcome: Pt's family expressed appreciation for support. ANN Andersonlain Spiritual Care Department O: [phone] Pager: [phone] ([phone] number calling from)
--- NOTE | 2018-07-23 15:20 | NUR ---
Spoke to family, ted spouse of patient, about removing life support. Explained to that stopping pressors without stopping ventilator support would be partial life support and the ventilator would not be effective if the heart did not pump the oxygenated blood (via pressors). Spouse verbalized understanding, and a decision was made by him and family to remove the vent and medications. No code is already in place. They would like the patient to be made comfortable. Dr. Morales and Lisa notified, Dr. Gonzalez gives comfort meds orders.
[2018-07-23] MEDS ORDERED: MORPHINE SULFATE 2 MG/ML SYR IV PRN (15:30)
[2018-07-23] MEDS ORDERED: MORPHINE SULFATE INJ 4 MG/ML INJ IV PRN (15:30)
[2018-07-23] MEDS ORDERED: LORAZEPAM INJ 2 MG/ML VIAL IV PRN (15:30)
--- NOTE | 2018-07-23 15:46 | NUR ---
pt extubated and all pressors turned off at this time. will continue to monitor
--- NOTE | 2018-07-23 16:30 | NUR ---
pt pronounced by Dr. Litzy Morales at this time. Family at bedside. Life gift notified, spoke w/Devorah Alex. Comfort given to family members. Post mortem care completed. waiting on family for arrangements
== END 2018-07-23 18:50 | disposition expired | DRG 853 ==
LOC: ER 16:31 → ERHOLD 18:30 → CATH LAB V 18:56 → ICU 22:40 → MED/SURG2 07-16 15:50 → ICU 07-22 16:33
PROC: 027035Z Dilation of Coronary Artery, One Artery with Two Drug-eluting Intraluminal Devices, Percutaneous Approach (ICD-10-PCS; principal; 2018-07-14)
PROC: 02HV33Z Insertion of Infusion Device into Superior Vena Cava, Percutaneous Approach (ICD-10-PCS; 2018-07-21)
PROC: 5A1D70Z Performance of Urinary Filtration, Intermittent, Less than 6 Hours Per Day (ICD-10-PCS; 2018-07-21)
PROC: 5A1935Z Respiratory Ventilation, Less than 24 Consecutive Hours (ICD-10-PCS; 2018-07-22)
PROC: 0BH17EZ Insertion of Endotracheal Airway into Trachea, Via Natural or Artificial Opening (ICD-10-PCS; 2018-07-22)
DX: A41.9 Sepsis, unspecified organism (principal); I21.19 ST elevation (STEMI) myocardial infarction involving other coronary artery of inferior wall; I50.21 Acute systolic (congestive) heart failure; N17.0 Acute kidney failure with tubular necrosis; J96.01 Acute respiratory failure with hypoxia; J69.0 Pneumonitis due to inhalation of food and vomit; N30.01 Acute cystitis with hematuria; N17.9 Acute kidney failure, unspecified; I23.1 Atrial septal defect as current complication following acute myocardial infarction; E87.2 Acidosis; N18.4 Chronic kidney disease, stage 4 (severe); R57.9 Shock, unspecified; R65.20 Severe sepsis without septic shock; Z66 Do not resuscitate; Z82.49 Family history of ischemic heart disease and other diseases of the circulatory system; Z83.3 Family history of diabetes mellitus; Z72.0 Tobacco use; E66.9 Obesity, unspecified; D72.829 Elevated white blood cell count, unspecified; R94.5 Abnormal results of liver function studies; N18.3 Chronic kidney disease, stage 3 (moderate); E11.22 Type 2 diabetes mellitus with diabetic chronic kidney disease; E87.6 Hypokalemia; I25.10 Atherosclerotic heart disease of native coronary artery without angina pectoris; R53.81 Other malaise; M10.072 Idiopathic gout, left ankle and foot; Z68.34 Body mass index [BMI] 34.0-34.9, adult
CPT/HCPCS: 36415; 36556; 36600; 71045; 71046; 74176; 74470; 76770; 76937; 77001; 80048; 80053; 80061; 81001; 82150; 82550; 82553; 82805; 82948; 83605; 83690; 83735; 83880; 84100; 84484; 84550; 85025; 85347; 85610; 85730; 86706; 87040; 87086; 87340; 87350; 90962; 92928; 93005; 93306; 93458; 93971; 94003; 96376; 97139; 99284; C1751; C1817; C1874; C1887; J0171; J0692; J0696; J1644; J1940; J2001; J2060; J2150; J2250; J2270; J2405; J3370; J3480; J7030; J7050; J7070; J7799; Q9967